=== PATIENT | female | born 1975 | race Caucasian/White ===

== ENCOUNTER → 2017-09-24 10:30 | Outpatient (CLI) | payer OTHER, SELFPAY | PROVIDERS: Family Provider Family Medicine; PCP Family Medicine; Visit Provider Family Medicine | DX: Z46.89 Encounter for fitting and adjustment of other specified devices (principal) ==

== ENCOUNTER → 2017-09-27 11:00 | Outpatient (CLI) | payer OTHER, SELFPAY | PROVIDERS: Family Provider Family Medicine; PCP Family Medicine; Visit Provider Family Medicine | DX: Z46.89 Encounter for fitting and adjustment of other specified devices (principal) ==

== ENCOUNTER → 2017-09-30 12:53 | Outpatient (CLI) | payer OTHER, SELFPAY | PROVIDERS: Family Provider Family Medicine; PCP Family Medicine; Visit Provider Family Medicine | DX: Z46.89 Encounter for fitting and adjustment of other specified devices (principal) ==

== ENCOUNTER → 2017-10-18 22:36 | Outpatient (CLI) | payer OTHER, SELFPAY | PROVIDERS: Family Provider Family Medicine; PCP Family Medicine; Visit Provider Family Medicine | DX: G47.33 Obstructive sleep apnea (adult) (pediatric) (principal) | CPT/HCPCS: 95811 ==

== ENCOUNTER → 2018-04-03 07:34 | Outpatient (CLI) | payer OTHER, SELFPAY ==
--- NOTE | 2018-04-03 07:36 | BI_ITS ---
MAMMOGRAPHY - BILATERAL SCREENING 3-D KYLIE SYNTHESIS REASON FOR EXAM: Female, 43 years old. Bilateral Screening 3-D tomosynthesis PERTINENT HISTORY: Grandmother with breast cancer.. TECHNIQUE: 2-D mammograms and 3-D Kylie synthesis of the breast (s) were performed. CAD was performed. COMPARISON: 02/08/2017 FINDINGS: The breast composition is heterogeneously dense that can obscure small breast masses. Scattered benign calcifications are seen. No dense spiculated masses or suspicious microcalcifications are identified. No architectural distortion is identified. There is no skin thickening or retraction. There has been no significant change since the prior study. BI/SCREENING MAMM (CAD), BILAT IMPRESSION: No mammographic signs of malignancy. Routine yearly mammograms recommended. ASSESSMENT CATEGORY: BIRADS Category 1: Negative. A letter regarding these results will be sent to the patient by the facility within 30 days. FOLLOW UP RECOMMENDATION: Yearly follow up mammogram recommended. (A) Approximately 10% of breast cancers are not detected by mammography. A normal mammogram should not delay biopsy of a clinically suspicious abnormality. Electronically Signed: Dennys Crawford MD at 10:18 EDT , Service support ,
[2018-04-03 09:09] LABS: AST(SGOT) 15 U/L (15-37); Alanine Aminotransfer ALT/SGPT 16 U/L (13-56); Albumin, Serum 3.4 g/dL (3.2-5.0); Alkaline Phosphatase 60 U/L (45-117); Anion Gap 3 (5-15); BUN 14 mg/dL (7-18); BUN/Creat Ratio 18.2 RATIO (10-20); Calcium,Total 8.7 mg/dL (8.5-10.1); Chloride 105 mmol/L (98-107); Cholesterol 190 mg/dL (200); Creatinine, Serum 0.77 mg/dL (0.55-1.02); EST Glomerular Filtration Rate 88 mL/min (>60); Est Glom Filt Rate - Afr Amer 106 mL/min (>60); Globulin 3.4 g/dL (2.2-4.2); Glucose 93 mg/dL (74-106); High Density Lipoprotein 59 mg/dL; Potassium 3.6 mmol/L (3.5-5.1); Protein, Total 6.8 g/dL (6.4-8.2); Sodium Level 139 mmol/L (136-145); Triglycerides 87 mg/dL; Very Low Density Lipoprotein 17 mg/dL (5-40)
== END ==
PROVIDERS: Family Provider Family Medicine; PCP Family Medicine; Visit Provider Family Medicine
DX: Z01.419 Encounter for gynecological examination (general) (routine) without abnormal findings (principal); Z12.31 Encounter for screening mammogram for malignant neoplasm of breast; Z13.220 Encounter for screening for lipoid disorders; Z13.1 Encounter for screening for diabetes mellitus
CPT/HCPCS: 36415; 77063; 77067; 80053; 80061

== ENCOUNTER 2018-07-24 12:15 | Outpatient (RCR) | payer OTHER, SELFPAY ==
--- NOTE | 2017-09-30 15:30 | MASS.EVAL ---
Massage Therapy Evaluation: Initial Evaluation Date: 09/30/2017 SUBJECTIVE: Kayy is a 42 year old female who was referred to the [facility] facility for a massotherapy evaluation by Dr. Tuan Antonio with the diagnosis of back pain. Kayy presents today with the symptoms of tension and pain in her neck, upper back and lower back. She reports having a medical history of scoliosis and surgery in December of 2016 for L5/S1 herniated disk. She reports having minimal limitations during his daily activities currently. OBJECTIVE: Upon observation Kayy has poor posture with her head forward and shoulders forward from the neutral position in sitting and standing. After examination and palpation I found Kayy to have high muscle tension in her scalenes, trapezius, rhomboids, and sub occipitals with minimal restrictions in cervical ROM. Her thoracic and lumbar paraspinals were tender with muscle knots. Her hips and lumbar region were also tight with tender points. The first treatment consisted of a one hour massage to her full body with myofascial release, muscle stripping and trig point compression techniques. ASSESSMENT: I feel that Kayy is a good candidate for massotherapy at this time. She had a favorable response to the first treatment with reduction in her muscle aches, pain and tension. She also had improvement in her cervical and lumbar range of motion with improved flexibility in her neck and back. PLAN: The plan of care was reviewed with the patient. The patient is to be seen on as needed basis for a total of ten sessions with the recommendation of once every four weeks for a one hour treatment.
--- NOTE | 2018-08-30 14:53 | MASS.DISCH ---
Massage Therapy Discharge Summary: Discharge Date: 08/30/2018 Kayy was seen for a massotherapy evaluation on 09/30/2017 with the diagnosis of scoliosis. She was treated with four sessions of massage therapy consisting of deep pressure soft tissue techniques, myofascial release and trigger point compression to her cervical, thoracic, lower back, upper extremities and hips. Kayy responded well to the therapy by reporting decreased tension and pain throughout her neck, shoulders, lower back and hips. Her goals for therapy were met throughout the treatment sessions. At this time this patient is being discharged from our care at [facility] facility.
== END 2018-07-24 19:00 | disposition home or self-care (01) ==
LOC: MASS 12:15
PROVIDERS: Family Provider Family Medicine; PCP Family Medicine; Visit Provider Specialist
DX: M41.9 Scoliosis, unspecified (principal)
CPT/HCPCS: 97124

== ENCOUNTER → 2019-02-12 10:52 | Outpatient (CLI) | payer OTHER, SELFPAY ==
--- NOTE | 2019-02-12 10:55 | CDU_ITS ---
Reason For Study: dizziness Rt. Velocities/BP Lt. Velocities/BP Prox CCA 111.2/27.8 cm/sec. Prox CCA 121.1/37.1 cm/sec. Mid CCA 108.6/30.4 cm/sec. Mid CCA 103.5/28.6 cm/sec. Dist CCA 99.5/26.5 cm/sec. Dist CCA 99.8/33.5 cm/sec. Prox ICA 95.6/18.6 cm/sec. Prox ICA 66.7/28.6 cm/sec. Mid ICA 61.7/23.9 cm/sec. Mid ICA 96.2/32.3 cm/sec. Dist ICA 87.8/44.7 cm/sec. Dist ICA 75.3/33.5 cm/sec. Rt. ICA/CCA = .9. Lt. ICA/CCA = .8. Prox ECA 95.6/21.3 cm/sec. Prox ECA 83.9/22.5 cm/sec. Rt. Vert. 53.9/22.6 cm/sec. Lt. Vert. 50.9/11.3 cm/sec. Right Extracranial There is intimal thickening but no significant atherosclerotic plaque noted in the right common carotid artery. There is intimal thickening but no significant atherosclerotic plaque noted in the right internal carotid artery. There is intimal thickening but no significant atherosclerotic plaque noted in the right external carotid artery. Antegrade flow is noted in the right vertebral artery. Left Extracranial There is intimal thickening but no significant atherosclerotic plaque noted in the left common carotid artery. There is intimal thickening but no significant atherosclerotic plaque noted in the left internal carotid artery. There is intimal thickening but no significant atherosclerotic plaque noted in the left external carotid artery. Antegrade flow is noted in the left vertebral artery. Procedure Carotid Duplex 58060. The exam was diagnostic. Exam performed in department. Interpretation Summary There is < 50% stenosis in bilateral extracranial ICA based on velocity criteria, no significant atherosclerotic disease. Antegrade flow noted in bilateral vertebral arteries. Essentially normal study. Ordering Physician: Rosalba Calvert Performed By: Martin Keys RVT
--- NOTE | 2019-02-12 13:21 | MRI_ITS ---
STUDY: MRA OF THE HEAD WITHOUT CONTRAST REASON FOR EXAM: Female, 44 years old. Dizziness TECHNIQUE: 3-D pror-gc-ysalyk (TOF) imaging was performed with MIPs. The study was performed unenhanced. COMPARISON: None. FINDINGS: Normal bilateral petrous carotid arteries. Normal right cavernous carotid artery with a normal supraclinoid bifurcation. Normal left cavernous carotid artery with a normal supraclinoid bifurcation. Normal right A1 segments of the anterior cerebral artery. Normal left A1 segments of the anterior cerebral artery. Normal intact anterior communicating artery (ACOM). Normal bilateral A2 segments of the anterior cerebral arteries. Normal right M1 and M2 segments of the middle cerebral arteries, with a normal M1 bifurcation. Normal left M1 and M2 segments of the middle cerebral arteries, with a normal M1 bifurcation. Normal right posterior communicating artery (PCOM). Normal left posterior communicating artery (PCOM). Hypoplastic left vertebral artery which terminates at the left posterior inferior cerebellar artery. Oormal basilar artery with a normal basilar bifurcation. The visualized bilateral superior cerebellar (SCA) arteries are normal. Normal bilateral P1, P2 and visualized P3 segments of the posterior cerebral arteries. There is no demonstrated aneurysm of the crow of [place]. There is no major vessel occlusion or hemodynamically significant stenosis. There is no demonstrated abnormality of the visualized brain. MRI/MRA Head ONLY without Contrast IMPRESSION: Normal MRA of the head Electronically Signed: Matthias Avila MD at 14:56 EDT Tel , Service support ,
--- NOTE | 2019-02-12 13:21 | MRI_ITS ---
STUDY: MRI BRAIN WITHOUT CONTRAST REASON FOR EXAM: Female, 44 years old. Dizziness TECHNIQUE: Standardized multiplanar fat and water weighted pulse sequences were obtained. COMPARISON: None. FINDINGS: Normal size of the ventricles and extra-axial spaces for the patient's age. Normal white matter tracts of the supratentorial brain. There is no evidence for recent intracranial ischemia or other cause of cytotoxic edema on diffusion weighted imaging (DWI). Normal T2* images of the brain without demonstrated susceptibility artifact. There is no demonstrated hemosiderin stain. Normal bilateral basal ganglia. Normal thalami. 1.5 cm round mass of fluid intensity in the gyri at the junction of the right parietal lobe in the right occipital lobe which appears to have thin internal septations and is felt to likely represent an arachnoid cyst. No significant mass effect or surrounding edema. Correlation MRI with contrast is recommended. Normal flow voids within the major intracranial circulation suggesting patency by spin echo criteria. Normal sella turcica, pituitary gland, infundibular stalk, optic chiasm and hypothalamus. Normal tectal plate and pineal gland. Normal midbrain, sebastien and medulla. Normal cerebellum. Normal basal cisterns. Normal bilateral temporal bones. Normal bilateral internal auditory canals. No demonstrated orbital abnormality, within the constraints of a routine brain study. Normal visualized paranasal sinuses. Normal calvarium and skull base. Normal visualized soft tissue structures. Normal visualized upper cervical spine. MRI/Brain without Contrast IMPRESSION: 1.5 cm probable arachnoid cyst of the posterior right parietal lobe. Correlation with MRI with contrast is recommended. Electronically Signed: Matthias Avila MD at 14:55 EDT Tel , Service support ,
== END ==
PROVIDERS: Family Provider Family Medicine; PCP Family Medicine; Referring Provider Psychiatry & Neurology Neurology; Visit Provider Psychiatry & Neurology Neurology
DX: R42 Dizziness and giddiness (principal)
CPT/HCPCS: 70544; 70551; 93880

== ENCOUNTER → 2019-03-05 17:35 | Outpatient (CLI) | payer OTHER, SELFPAY ==
--- NOTE | 2019-03-05 17:51 | MRI_ITS ---
STUDY: MRI BRAIN WITH CONTRAST REASON FOR EXAM: Female, 44 years old. Arachnoid cyst TECHNIQUE: Standardized multiplanar fat and water weighted pulse sequences were obtained. 15 IV Dotarem was administered for the contrast portion of the examination. COMPARISON: February 12, 2019 FINDINGS: Normal size of the ventricles and extra-axial spaces for the patient's age. Normal white matter tracts of the supratentorial brain. Normal bilateral basal ganglia. Normal thalami. There is no extra-axial fluid accumulation. Normal flow voids within the major intracranial circulation suggesting patency by spin echo criteria. Normal venous enhancement. There is a small thin walled enhancing nodule in the right parietal lobe measuring approximately 5.3 x 6 mm in association with mild low signal intensity but no appreciable mass effect. Normal sella turcica, pituitary gland, infundibular stalk, optic chiasm and hypothalamus. Normal tectal plate and pineal gland. Normal midbrain, sebastien and medulla. Normal cerebellum. Normal basal cisterns. Normal bilateral temporal bones. Normal bilateral internal auditory canals. No demonstrated orbital abnormality, within the constraints of a routine brain study. Normal visualized paranasal sinuses. Normal calvarium and skull base. Normal visualized soft tissue structures. Normal visualized upper cervical spine. MRI/Brain WITH Contrast IMPRESSION: Small nonspecific thin-walled enhancing nodule in the right parietal lobe without appreciable mass effect of uncertain etiology. Differential diagnosis includes low-grade neoplasm, inflammatory disease, vascular lesion or demyelinating process. Recommend clinical correlation and follow-up studies Electronically Signed: Marty Dao MD at 19:51 EDT , Service support ,
== END ==
PROVIDERS: Family Provider Family Medicine; PCP Family Medicine; Referring Provider Psychiatry & Neurology Neurology; Visit Provider Psychiatry & Neurology Neurology
DX: G93.0 Cerebral cysts (principal); R42 Dizziness and giddiness
CPT/HCPCS: 70552; A9575

== ENCOUNTER → 2019-03-27 | Outpatient (CLI) | payer OTHER, SELFPAY ==
[2019-03-27 11:29] LABS: Erythrocyte Sedimentation Rate 10 mm/hr (0-20)
[2019-03-27 12:01] LABS: CRP 7.49 mg/L (0.0-3.0); Rheumatoid Factor < 10.0 IU/mL (<15); Thyroid Stim Hormone (TSH) 2.25 uIU/mL (0.358-3.74)
[2019-03-31 17:23] LABS: ANTINUCLEAR ANTIBODIES DIRECT Negative (Negative)
[2019-04-01 04:09] LABS: Cytoplasmic Ab (C-ANCA) <1:20 titer (Neg:<1:20); Lyme IgG P18 Ab Absent (.); Lyme IgG P23 Ab Absent (.); Lyme IgG P28 Ab Absent (.); Lyme IgG P30 Ab Absent (.); Lyme IgG P39 Ab Absent (.); Lyme IgG P41 Ab Absent (.); Lyme IgG P45 Ab Absent (.); Lyme IgG P58 Ab Absent (.); Lyme IgG P66 Ab Absent (.); Lyme IgG P93 Ab Absent (.); Lyme IgM P23 Ab Absent (.); Lyme IgM P39 Ab Absent (.); Lyme IgM P41 Ab Absent (.)
[2019-04-01 09:55] LABS: Angiotensin Convert Enzyme 36 U/L (14-82); Lyme IgG WB Interpretation Negative (.); Lyme IgM WB Interpretation Negative (.); Perinuclear Ab (P-ANCA) <1:20 titer (Neg:<1:20)
== END | disposition home or self-care (01) ==
LOC: LAB 10:35
PROVIDERS: Family Provider Family Medicine; PCP Family Medicine; Referring Provider Psychiatry & Neurology Neurology; Visit Provider Psychiatry & Neurology Neurology
DX: R42 Dizziness and giddiness (principal); R90.89 Other abnormal findings on diagnostic imaging of central nervous system
CPT/HCPCS: 36415; 82164; 84443; 85652; 86038; 86140; 86256; 86431; 86617

== ENCOUNTER → 2019-04-07 17:48 | Outpatient (CLI) | payer OTHER, SELFPAY ==
[2019-04-02 14:35] VITALS: BMI 29.4
--- NOTE | 2019-04-07 17:50 | CT_ITS ---
STUDY: CT CHEST WITH CONTRAST REASON FOR EXAM: Female, 44 years old. Brain lesion seen on MRI, cancer screening RADIATION DOSAGE (If Supplied By Facility): CTDIvol = ( 15.36 ) mGy, DLP = ( 1442.19 ) mGycm TECHNIQUE: Transaxial imaging was performed following intravenous administration of 100ML IV Isovue 300. Individualized dose optimization techniques were used for this CT. COMPARISON: None. FINDINGS: The lungs are normal. There is no demonstrated pleural abnormality. Normal heart and pericardium. Normal mediastinum. Normal hilar regions. Normal enhanced pulmonary arteries. Normal aorta arch and descending thoracic aorta. There is mild diffuse endplate spondylosis of the thoracic spine. Abdominal findings are reported separately. CT/Chest WITH Contrast IMPRESSION: Mild diffuse endplate spondylosis of the thoracic spine. There is no evidence of thoracic mass, adenopathy, or pulmonary nodule. Electronically Signed: Jaime Kraft MD at 20:53 EDT , Service support ,
--- NOTE | 2019-04-07 17:50 | CT_ITS ---
STUDY: CT ABDOMEN AND PELVIS WITH CONTRAST REASON FOR EXAM: Female, 44 years old. Brain lesion seen on MRI, cancer screening RADIATION DOSAGE (If Supplied By Facility): CTDIvol = ( ) mGy, DLP = ( 1442.19 ) mGycm TECHNIQUE: Transaxial images were obtained from the dome of the diaphragm to the symphysis pubis with oral contrast. 100ML IV/Oral Isovue 300 was administered. Sagittal and coronal images were reconstructed. Individualized dose optimization techniques were used for this CT. COMPARISON: None. FINDINGS: The visualized lung bases are unremarkable. The visualized portions of the heart are within normal limits. Normal liver. There are several tiny calcified gallstones. Normal spleen. Normal pancreas. Normal bilateral adrenal glands. Normal right kidney. Normal left kidney. Normal visualized stomach. Normal small intestine. Normal colon. The appendix is visualized and appears normal. Normal abdominal aorta. Normal inferior vena cava. Normal retroperitoneum. Normal urinary bladder. The uterus and adnexal structures are unremarkable. Normal abdominal wall. Normal osseous structures. CT/Abdomen/Pelvis WITH Contrast IMPRESSION: Cholelithiasis. There is no evidence of intra-abdominal or intrapelvic mass or adenopathy. Electronically Signed: Jaime Kraft MD at 20:43 EDT , Service support ,
== END ==
PROVIDERS: Family Provider Family Medicine; PCP Family Medicine; Referring Provider Internal Medicine Medical Oncology
DX: R90.89 Other abnormal findings on diagnostic imaging of central nervous system (principal)
CPT/HCPCS: 71260; 74177; Q9967

== ENCOUNTER → 2019-04-09 15:51 | Outpatient (CLI) | payer OTHER, SELFPAY ==
[2019-04-09 09:08] LABS: AST(SGOT) 14 U/L (15-37); Alanine Aminotransfer ALT/SGPT 17 U/L (13-56); Albumin, Serum 3.7 g/dL (3.2-5.0); Alkaline Phosphatase 57 U/L (45-117); Anion Gap 6 (5-15); BUN 13 mg/dL (7-18); BUN/Creat Ratio 13.1 RATIO (10-20); Calcium,Total 9.2 mg/dL (8.5-10.1); Chloride 105 mmol/L (98-107); Cholesterol 196 mg/dL (200); Creatinine, Serum 0.99 mg/dL (0.55-1.02); EST Glomerular Filtration Rate 65 mL/min (>60); Est Glom Filt Rate - Afr Amer 79 mL/min (>60); Globulin 3.7 g/dL (2.2-4.2); Glucose 91 mg/dL (74-106); High Density Lipoprotein 60 mg/dL; Potassium 3.9 mmol/L (3.5-5.1); Protein, Total 7.4 g/dL (6.4-8.2); Sodium Level 140 mmol/L (136-145); Triglycerides 63 mg/dL; Very Low Density Lipoprotein 13 mg/dL (5-40)
[2019-04-09 09:51] VITALS: BMI 29.2
--- NOTE | 2019-04-09 15:54 | BI_ITS ---
MAMMOGRAPHY - BILATERAL SCREENING REASON FOR EXAM: Female, 44 years old. Routine annual screening examination. PERTINENT HISTORY: Grandmother with breast cancer. TECHNIQUE: Digital bilateral breast kylie (3D mammographic acquisition) in the CC and MLO projections. 2-D mediolateral oblique (MLO) and craniocaudad (CC) views of both breasts were obtained. CAD: Full Field Digital Mammography with Computer Added Detection was performed. COMPARISON: Comparison is made with prior study dated April 03, 2018 and February 08, 2017. FINDINGS: Breast Composition: The breasts are heterogeneously dense, which may obscure small masses. There are no dominant masses or suspicious calcifications. Stable small benign-appearing bilateral axillary lymph nodes. No other significant abnormalities are identified. There has been no significant change since the prior study. BI/SCREEN MAMM (CAD) W/KYLIE BILAT IMPRESSION: Stable bilateral screening mammogram. Yearly follow-up mammogram recommended. (A) ASSESSMENT CATEGORY: BIRADS Category 2: Benign. A letter regarding these results will be sent to the patient by the facility within 30 days. Approximately 10% of breast cancers are not detected by mammography. A normal mammogram should not delay biopsy of a clinically suspicious abnormality. [id number] Electronically Signed: Cale Milner, at 9:03 EDT , Service support ,
== END ==
PROVIDERS: Family Provider Family Medicine; PCP Family Medicine; Referring Provider Family Medicine; Visit Provider Family Medicine
DX: Z12.31 Encounter for screening mammogram for malignant neoplasm of breast (principal); Z80.3 Family history of malignant neoplasm of breast; Z13.1 Encounter for screening for diabetes mellitus; Z13.220 Encounter for screening for lipoid disorders
CPT/HCPCS: 36415; 77063; 77067; 80053; 80061

== ENCOUNTER → 2019-04-16 10:12 | Outpatient (CLI) | payer OTHER, SELFPAY ==
[2019-04-02 14:35] VITALS: BMI 29.4
[2019-04-09 09:51] VITALS: BMI 29.2
--- NOTE | 2019-04-16 10:22 | MRI_ITS ---
STUDY: MRI BRAIN WITH AND WITHOUT CONTRAST REASON FOR EXAM: Female, 44 years old. Follow up for brain mass. Dizziness. TECHNIQUE: Standardized multiplanar fat and water weighted pulse sequences were obtained. 15 IV Dotarem was administered for the contrast portion of the examination. COMPARISON: Brain MRI 02/12/2019 and 03/05/2019. FINDINGS: There is a bubbly cystic lesion measuring 1.7 x 1.1 x 1.1 cm in the right posterior parietal lobe subcortical white matter. On the contrast-enhanced sequences this demonstrates a 7 x 5 mm peripherally enhancing mural nodule. There is no surrounding vasogenic edema or mass effect. Normal size of the ventricles and extra-axial spaces for the patient's age. Normal white matter tracts of the supratentorial brain. There is no evidence for recent intracranial ischemia or other cause of cytotoxic edema on diffusion weighted imaging (DWI). Normal T2* images of the brain without demonstrated susceptibility artifact. There is no demonstrated hemosiderin stain. Normal bilateral basal ganglia. Normal thalami. There is no extra-axial fluid accumulation. Normal flow voids within the major intracranial circulation suggesting patency by spin echo criteria. Normal venous enhancement. Normal sella turcica, pituitary gland, infundibular stalk, optic chiasm and hypothalamus. Normal tectal plate and pineal gland. Normal midbrain, sebastien and medulla. Normal cerebellum. Normal basal cisterns. Normal bilateral temporal bones. Normal bilateral internal auditory canals. No demonstrated orbital abnormality, within the constraints of a routine brain study. Normal visualized paranasal sinuses. Normal calvarium and skull base. Normal visualized soft tissue structures. Normal visualized upper cervical spine. MRI/Brain W/WO Contrast IMPRESSION: 1. Right posterior parietal lobe subcortical white matter cystic lesion measuring 1.7 x 1.1 x 1.1 cm with a 7 x 5 mm peripherally enhancing mural nodule. Differential diagnosis includes but is not limited to hemangioblastoma, cystic metastasis or pleomorphic xanthoastrocytoma. There is no surrounding vasogenic edema or mass effect. 2. Consider imaging the cervical, thoracic and lumbar spine with IV contrast as hemangioblastoma may have multiple lesions. Electronically Signed: Ti Ibarra, at 14:40 EDT Tel , Service support ,
== END ==
PROVIDERS: Family Provider Family Medicine; PCP Family Medicine
DX: D49.6 Neoplasm of unspecified behavior of brain (principal)
CPT/HCPCS: 70553; A9575

== ENCOUNTER 2019-04-23 08:27 | Outpatient (CLI) | payer OTHER, SELFPAY ==
[2019-04-09 09:51] VITALS: BMI 29.2
--- NOTE | 2019-04-23 | CYSPIN_PTH ---
PATIENT: SATISH SUAZO LOC: RAD U#:[id number] AGE/SX: 44/F ROOM: RE04/23/[address]: Dr. Una Calvert MD : [id number] BED: DIS: 04/23/2019 SPEC #: [id number] RECD: 04/23/19 09:52 STATUS: SHANTE REVerna #: [id number] JOE: 04/23/19 00:[address]: Una Calvert DEPT: CYTOLOGY RECD BY: Jorge Luis Leblanc ENTERED: 04/23/19 11:14 SP TYPE: CYSPIN FL OTHR DR: Dr. Tuan Antonio MD Tissues: Cerebrospinal Fluid Procedures: Pap Stain (control) Special Stain Group II Cytospin Fluid HEADER OPERATION: Lumbar puncture PRE-OP DIAGNOSIS: Possible multiple sclerosis TISSUE SUBMITTED: Cerebrospinal fluid for cytology DIAGNOSIS CYTOLOGY Cerebrospinal fluid for cytology (cytospin): Virtually acellular specimen. AM:connor 04/24/19 CYTOLOGY STUDY Slides are reviewed. CYTOLOGY GROSS Received is 4 ml of clear fluid labeled with the patient's name and and designated per the requisition as CSF. Submitted for cytology preparation including cell block. 04/23/19 TC:5 CPT: 47549
[2019-04-23 08:32] LABS: Oligoclonal Banding Comment REF LAB
[2019-04-23 08:54] VITALS: BP 115/77; PULSE 84; RESP 18; TEMP 36.7; O2SAT 97; BMI 29.1
--- NOTE | 2019-04-23 09:05 | RAD_ITS ---
PROCEDURE: Fluoroscopic guided Lumbar Puncture. DATE: April 23, 2019 CLINICAL INDICATION: Possible multiple sclerosis. PHYSICIAN: Cale Milner M.D. MEDICATIONS: 1% lidocaine administered subcutaneously for local anesthesia. ACCESS SITE: Lower posterior back. NEEDLE: 22-gauge spinal needle. SPECIMEN: Approximately 12 mL clear]CSF fluid. FLUOROSCOPY TIME (if supplied): (0:37) minutes/seconds COMPLICATIONS: None immediate. The risks, benefits, and alternatives to the procedure were explained to the patient. The specific risks of bleeding, infection, and neurovascular injury were detailed and accepted. Witnessed informed consent was obtained. The patient was placed on the fluoroscopic table in the prone position. The level for needle entry was determined and marked. The overlying skin was cleaned and prepped in the usual sterile fashion. 2% lidocaine was administered subcutaneously for local anesthesia. Under fluoroscopic guidance a 22-gauge spinal needle was advanced. The thecal sac was entered at the L3- L4 vertebral level. The inner stylet was removed. There was spontaneous flow of clear CSF fluid. The patient was placed in a reversed Trendelenburg position. Approximately 12 mL of cerebrospinal fluid was collected using gravity. The specimen was collected and submitted to the laboratory for further evaluation. The needle was withdrawn,. Hemostasis was achieved and a sterile dressing placed. The patient tolerated the procedure well without any immediate complications. The patient was placed supine with head elevated and returned to the floor in stable condition. RAD/Fluoro Guided Lumbar Puncture IMPRESSION: Successful fluoroscopic-guided lumbar puncture. Electronically Signed: Cale Milner, at 10:49 EDT , Service support ,
--- NOTE | 2019-04-23 09:50 | NURSING ---
notifed Keisha in lab regarding Lumbar puncture specimens obtained in radiology and sent to lab.
[2019-04-23 09:58] LABS: Cytology, Body Fluid / CSF SEE PATHOLOGY REPORT
[2019-04-23 10:31] LABS: Glucose Spinal Fluid 53 mg/dL (40-75)
[2019-04-23 10:49] VITALS: BP 112/74; PULSE 67; RESP 18; TEMP 36.7; O2SAT 99
[2019-04-23 11:01] LABS: Appearance CSF (character) CLEAR (Clear); Body Fluid QC Type(s) BF1Q,BF2Q; CSF Color COLORLESS (Colorless); RBC Count, Spinal Fluid 0 /mm-3 (None seen); White Count, CSF 0 /mm-3 (0 - 5)
[2019-04-23 11:02] LABS: Tested Tube # 4
[2019-04-23 14:40] LABS: Pathologist Review Reviewed
[2019-04-29 05:06] LABS: Cryptococcus Antigen CSF Negative (Negative); HSV 1 By PCR Negative (Negative)
[2019-04-29 11:29] LABS: CMV by PCR Negative (Negative); HSV 2 By PCR Negative (Negative); Myelin Basic Protein, MBP 3.3 ng/mL (0.0-1.2)
== END 2019-04-23 10:49 | disposition home or self-care (01) ==
LOC: RAD 08:28
PROVIDERS: Family Provider Family Medicine; PCP Family Medicine; Referring Provider Psychiatry & Neurology Neurology; Visit Provider Psychiatry & Neurology Neurology
DX: R42 Dizziness and giddiness (principal)
CPT/HCPCS: 36415; 62270; 77003; 82040; 82042; 82784; 82945; 83873; 83916; 84157; 87496; 87529; 87899; 88108; 88313; 89050; 89051

== ENCOUNTER 2019-05-05 11:09 | Outpatient (RCR) | payer OTHER, SELFPAY ==
--- NOTE | 2019-08-19 11:28 | DS.PCM_ITS ---
Massage Therapy Discharge Summary: Initial Evaluation Date: 05/05/2019 Diagnosis: Scoliosis No. of Visits: Date of last visit: 05/05/2019 Goals: Insufficient visits to meet goals This patient is being discharged from our care at the [facility]. Thank you, Odette Grady LMT
== END 2019-05-05 19:00 | disposition home or self-care (01) ==
LOC: MASS 11:09
PROVIDERS: Family Provider Family Medicine; PCP Family Medicine; Referring Provider Family Medicine; Visit Provider Family Medicine
DX: M41.9 Scoliosis, unspecified (principal)
CPT/HCPCS: 97124

== ENCOUNTER → 2019-05-07 11:47 | Outpatient (CLI) | payer OTHER, SELFPAY ==
[2019-04-23 08:54] VITALS: BMI 29.1
== END ==
PROVIDERS: Family Provider Family Medicine; PCP Family Medicine; Referring Provider Psychiatry & Neurology Neurology; Visit Provider Psychiatry & Neurology Neurology
DX: G93.9 Disorder of brain, unspecified (principal)
CPT/HCPCS: 36415

== ENCOUNTER → 2019-05-27 10:17 | Outpatient (CLI) | payer OTHER, SELFPAY ==
[2019-05-15 12:29] VITALS: BMI 29.1
--- NOTE | 2019-05-27 10:27 | MRI_ITS ---
STUDY: MRI LUMBAR SPINE WITH AND WITHOUT CONTRAST REASON FOR EXAM: Female, 44 years old. Partially enhancing cystic lesion in the right parietal lobe. Assess for spinal lesions. TECHNIQUE: Standardized fat and water weighted pulse sequences were obtained in the sagittal and axial planes. 15 IV Dotarem was administered for the contrast portion of the examination. COMPARISON: MRI lumbar spine 09/29/16 FINDINGS: No concerning masses or abnormal enhancement in the lumbar spine. Alignment anatomic. No fracture or acute or concerning osseous lesions. Incidental subcentimeter hemangioma L2 vertebral body. Conus terminates at the level of the L1 superior endplate with normal contour and signal. Normal arborization of the cauda equina. Thecal sac terminates at the lower S2 level. At L5-S1, there is evidence of remote left hemilaminotomy. Diffuse disc bulge with small left paracentral protrusion mildly narrows the left subarticular zone, abutting but not compressing the traversing left S1 nerve root. Only mild bilateral foraminal narrowing. This is similar to prior. The more cephalad lumbar spine shows very little degenerative changes with no significant foraminal or spinal canal narrowing and no nerve root impingement. Paraspinal soft tissues are unremarkable. MRI/Spine Lumbar W/WO Contrast IMPRESSION: No concerning masses or abnormal enhancement in the lumbar spine. Left paracentral disc protrusion abuts the traversing left S1 nerve root in the left L5-S1 subarticular zone, similar to prior. Electronically Signed: Jaime Case, at 15:24 EDT Tel , Service support ,
--- NOTE | 2019-05-27 10:27 | MRI_ITS ---
STUDY: MRI CERVICAL SPINE WITH AND WITHOUT CONTRAST REASON FOR EXAM: Female, 44 years old. Partially enhancing cystic mass in the right parietal lobe. Assess for spinal lesions. TECHNIQUE: Standardized fat and water weighted pulse sequences were obtained in the sagittal and axial following administration of 15 IV Dotarem. COMPARISON: None FINDINGS: No masses or abnormal enhancement or concerning lesions in the cervical spine. Normal contour and signal of the cervical spinal cord. Alignment anatomic. No fracture or suspicious osseous lesions. At C5-6, left uncovertebral joint osteophytes cause moderate left foraminal narrowing. Less prominent degenerative changes at other levels with only mild narrowing of the spinal canal and/or foramina. Paraspinal soft tissues with no acute finding. Shotty mildly prominent cervical lymph nodes. MRI/Spine Cervical W/WO Contrast IMPRESSION: No masses or abnormal enhancement or concerning lesions in the cervical spine. Electronically Signed: Jaime Case, at 15:38 EDT Tel , Service support ,
--- NOTE | 2019-05-27 10:27 | MRI_ITS ---
STUDY: MRI THORACIC SPINE WITH AND WITHOUT CONTRAST REASON FOR EXAM: Female, 44 years old. Cystic partially enhancing mass in the parietal lobe of the brain on the right. Assess for spinal lesions. TECHNIQUE: 15 IV Dotarem was administered for the contrast portion of the examination. COMPARISON: CT chest 03/08/2019. FINDINGS: No masses or abnormal enhancement or concerning findings in the thoracic spine. Alignment anatomic. No fracture or suspicious osseous lesion. Multilevel small disc protrusions in the upper and mid thoracic spine with only mild narrowing of the spinal canal and foramina. Normal contour and signal of the thoracic spinal cord. No acute or concerning finding in the paraspinal soft tissues. Incidental small cyst right lobe of liver. MRI/Spine Thoracic W/WO Contrast IMPRESSION: No masses or abnormal enhancement or concerning findings in the thoracic spine. Electronically Signed: Jaime Case, at 15:58 EDT Tel , Service support ,
== END ==
PROVIDERS: Family Provider Family Medicine; PCP Family Medicine; Referring Provider Psychiatry & Neurology Neurology; Visit Provider Psychiatry & Neurology Neurology
DX: D49.6 Neoplasm of unspecified behavior of brain (principal); D18.02 Hemangioma of intracranial structures; M51.27 Other intervertebral disc displacement, lumbosacral region
CPT/HCPCS: 72156; 72157; 72158

== ENCOUNTER → 2019-06-08 09:48 | Outpatient (CLI) | payer OTHER, SELFPAY ==
[2019-05-15 12:29] VITALS: BMI 29.1
--- NOTE | 2019-06-08 10:30 | PET_ITS ---
EXAMINATION: FDG PET-CT Brain INDICATIONS: A 44-year-old female with reported history of apparent brain neoplasm presenting for initial staging examination. COMPARISON EXAMINATION: MRI of the brain report dated 04/16/19 TECHNIQUE: Following the intravenous administration of 11.71 mCi of F-18 deoxyglucose via the right antecubital fossa, multiplanar image acquisitions of the brain obtained at 60 minutes post radiopharmaceutical administration reveal: SERUM GLUCOSE LEVEL: 89 mg/dl. HEIGHT: 65 inches. WEIGHT: 175 lbs. FINDINGS: 1. Asymmetric increased glucose concentration is subtly defined in the posterior aspect of the right parietal lobe generating a lesion to contralateral hemisphere ratio of 1.1:1. 2. There is otherwise symmetric and preserved glucose metabolism noted in the remaining cerebral cortical and subcortical structures. PET/PET/CT Tumor Base -Thigh Init IMPRESSION: 1. Subtle asymmetric increased glucose concentration identified in the posterior aspect of the right parietal lobe may correlate with the anatomic abnormalities defined on MRI of the brain report dated 04/16/19. 2. No other quantitatively significant hypermetabolic abnormalities are noted. Electronic Signature Matthias Santoyo D.O. Electronically Signed: Matthias Santoyo DO at 22:52 EDT Tel , Service support ,
== END ==
PROVIDERS: Family Provider Family Medicine; PCP Family Medicine; Referring Provider Psychiatry & Neurology Neurology; Visit Provider Psychiatry & Neurology Neurology
DX: G93.9 Disorder of brain, unspecified (principal)
CPT/HCPCS: 78815; A9552

== ENCOUNTER → 2019-07-25 08:35 | Outpatient (CLI) | payer OTHER, SELFPAY ==
[2019-06-11 14:00] VITALS: BMI 29.1
--- NOTE | 2019-07-25 08:41 | MRI_ITS ---
STUDY: MRI BRAIN WITH AND WITHOUT CONTRAST REASON FOR EXAM: Female, 44 years old. RT PARIETAL LOBE LESION -- recheck, dizziness improved, pollock's. TECHNIQUE: Standardized multiplanar fat and water weighted pulse sequences were obtained. IV Dotarem 15 was administered for the contrast portion of the examination. COMPARISON: April 16, 2019 and February 12, 2019 FINDINGS: Again noted is the approximately 1.8 x 1.1 cm right parietal lesion which demonstrate 8mm nodular enhancement and surrounding cystic component. This is stable in comparison with the prior examinations. There is no surrounding vasogenic edema. Normal size of the ventricles and extra-axial spaces for the patient's age. Normal white matter tracts of the supratentorial brain. Normal bilateral basal ganglia. Normal thalami. There is no extra-axial fluid accumulation. Normal flow voids within the major intracranial circulation suggesting patency by spin echo criteria. Normal sella turcica, pituitary gland, infundibular stalk, optic chiasm and hypothalamus. Normal tectal plate and pineal gland. Normal midbrain, sebastien and medulla. Normal cerebellum. Normal basal cisterns. MRI/Brain W/WO Contrast IMPRESSION: Stable right parietal cystic lesion. Differential considerations are low-grade cystic neoplasm, metastatic disease, infectious (neurocysticercosis) and hemangioblastoma. Electronically Signed: Eileen Colunga MD at 16:27 EST Tel , Service support ,
== END ==
PROVIDERS: Family Provider Family Medicine; PCP Family Medicine; Referring Provider Psychiatry & Neurology Neurology; Visit Provider Psychiatry & Neurology Neurology
DX: G93.9 Disorder of brain, unspecified (principal)
CPT/HCPCS: 70553; A9575

== ENCOUNTER → 2019-12-17 11:00 | Outpatient (CLI) | payer OTHER, SELFPAY ==
[2019-08-11 14:17] VITALS: BMI 28.4
--- NOTE | 2019-12-17 11:09 | MRI_ITS ---
STUDY: MRI BRAIN WITH AND WITHOUT CONTRAST REASON FOR EXAM: Female, 44 years old. right parietal lobe lesion, dizziness and headaches x 4 wks TECHNIQUE: Standardized multiplanar fat and water weighted pulse sequences were obtained. IV Dotarem 15ml was administered for the contrast portion of the examination. COMPARISON: July 25, 2019 and February 12, 2019 FINDINGS: Again noted is the approximately 1.8 x 1.1 cm right parietal lesion which demonstrate 8mm nodular enhancement and surrounding cystic component. This is stable in comparison with the prior examinations. There is no surrounding vasogenic edema. Normal white matter tracts of the supratentorial brain. Normal bilateral basal ganglia. Normal thalami. There is no extra-axial fluid accumulation. Normal flow voids within the major intracranial circulation suggesting patency by spin echo criteria. Normal venous enhancement. There is no enhancing intra-axial or extra-axial abnormality. Normal sella turcica, pituitary gland, infundibular stalk, optic chiasm and hypothalamus. Normal tectal plate and pineal gland. Normal midbrain, sebastien and medulla. Normal cerebellum. Normal basal cisterns. MRI/Brain W/WO Contrast IMPRESSION: Stable right parietal cystic lesion. Differential considerations include low-grade cystic neoplasm, and hemangioblastoma. Electronically Signed: Eileen Colunga MD at 13:44 EDT Tel , Service support ,
== END ==
PROVIDERS: PCP Family Medicine
DX: G93.9 Disorder of brain, unspecified (principal)
CPT/HCPCS: 70553; A9575

== ENCOUNTER 2020-11-25 22:14 | Outpatient (RCR) | payer OTHER, SELFPAY ==
[2020-02-22 15:35] VITALS: BMI 28.3
[2020-11-25] MEDS: COVID-19 VACC, MRNA(PFIZER)/PF 30 MCG/0.3 ML SYRINGE IM (15:35)
[2020-12-16] MEDS: COVID-19 VACC, MRNA(PFIZER)/PF 30 MCG/0.3 ML SYRINGE IM (15:07)
== END 2020-11-25 23:59 ==
LOC: IMMUN 22:14
PROVIDERS: PCP Family Medicine; Visit Provider Family Medicine
DX: Z23 Encounter for immunization (principal)
CPT/HCPCS: 0001A; 0002A; 91300

== ENCOUNTER → 2021-01-17 10:34 | Outpatient (CLI) | payer OTHER, SELFPAY ==
[2020-02-22 15:35] VITALS: BMI 28.3
--- NOTE | 2021-01-17 10:36 | BI_ITS ---
MAMMOGRAPHY - BILATERAL SCREENING REASON FOR EXAM: Female, 46 years old. Routine annual screening examination. PERTINENT HISTORY: Grandmother with breast cancer. TECHNIQUE: Digital bilateral breast kylie (3D mammographic acquisition) in the CC and MLO projections. 2-D mediolateral oblique (MLO) and craniocaudad (CC) views of both breasts were obtained. CAD: Full Field Digital Mammography with Computer Added Detection was performed. COMPARISON: Comparison is made with prior study dated 04/09/2019 and 04/03/2018. FINDINGS: Breast Composition: The breasts are heterogeneously dense, which may obscure small masses. There are no dominant masses or suspicious calcifications. Stable small benign-appearing bilateral axillary lymph nodes. No other significant abnormalities are identified. There has been no significant change since the prior study. BI/SCRN MAMM (CAD)W/KYLIE BILAT IMPRESSION: Stable bilateral screening mammogram. Yearly follow-up mammogram recommended. (A) ASSESSMENT CATEGORY: BIRADS Category 2: Benign. A letter regarding these results will be sent to the patient by the facility within 30 days. Approximately 10% of breast cancers are not detected by mammography. A normal mammogram should not delay biopsy of a clinically suspicious abnormality. [id number] Electronically Signed: Cale Milner MD at 11:36 EDT , Service support ,
== END ==
PROVIDERS: PCP Family Medicine; Referring Provider Family Medicine; Visit Provider Family Medicine
DX: Z12.31 Encounter for screening mammogram for malignant neoplasm of breast (principal)
CPT/HCPCS: 77063; 77067

== ENCOUNTER 2021-07-19 13:15 | Outpatient (RCR) | payer OTHER, SELFPAY ==
[2020-02-22 15:35] VITALS: BMI 28.3
--- NOTE | 2021-04-19 11:36 | MASS.EVAL_ITS ---
Massage Therapy Evaluation: Initial Evaluation Date: 04/18/2021 SUBJECTIVE: Kayy is a 46 year old female who was referred to the [facility] for a massotherapy evaluation by Dr. Antonio with the diagnosis of scoliosis and muscle spasms. She presents today with the symptoms of dealing with having muscles spasms in her mid back. she reports that the spasms occur after having her arms out forward for a long period of time, such as yard work. She is currently taking muscle relaxers at this time and that has helped. OBJECTIVE: Upon observation Kayy has poor posture with her head and shoulders forward from the neutral position in sitting and standing. After examination and palpation, I found Kayy to have high muscle tension with tenderness and myofascial restrictions in her sub occipitals, levator scapulae, trapezius, rhomboids, scalenes, and thoracic paraspinals. Her QL?s, lumbar paraspinals, piriformis, glute medius and minimus all were very tight with fascial restrictions, tender points and trigger points. The first treatment consisted of a one hour massage to her full body with myofascial release, muscle stripping, trigger point c ompression techniques, and cervical manual traction. ASSESSMENT: I feel that Kayy is a good candidate for massotherapy at this time. She had a favorable response to the first treatment with reduction in her muscle aches, pain, and tension. She also had improvement in her cervical flexibility. PLAN: The plan of care was reviewed with the patient. The patient is to be seen on an as needed basis for a total of ten sessions with the recommendation of once every month for a one hour treatment.
--- NOTE | 2021-08-22 13:22 | MASS.DISCH ---
Massage Therapy Discharge Summary: Discharge 08/22/21 Kayy was seen for a massotherapy evaluation on 04/18/21 with the diagnosis of muscle spasms. She was treated with three session of massage therapy. The patient was unable to schedule more visits for the year of 2020, but stated that massages helped decrease her pain. At this time I am discharging the patient from our care at [facility] facility.
== END 2021-07-19 19:00 | disposition home or self-care (01) ==
LOC: MASS 13:15
PROVIDERS: PCP Family Medicine; Referring Provider Family Medicine; Visit Provider Family Medicine
DX: M41.9 Scoliosis, unspecified (principal); M62.838 Other muscle spasm
CPT/HCPCS: 97124

== ENCOUNTER → 2022-01-17 | Outpatient (CLI) | payer OTHER, SELFPAY ==
[2022-01-22 16:38] LABS: HPV APTIMA, High Risk Negative (Negative)
== END | disposition home or self-care (01) ==
PROVIDERS: PCP Family Medicine; Referring Provider Nurse Practitioner Women's Health; Visit Provider Nurse Practitioner Women's Health
DX: Z12.4 Encounter for screening for malignant neoplasm of cervix (principal)
CPT/HCPCS: 87624; 88175; G0145

== ENCOUNTER → 2022-01-30 | Outpatient (CLI) | payer OTHER, SELFPAY ==
--- NOTE | 2022-01-30 13:35 | BI_ITS ---
MAMMOGRAPHY - BILATERAL SCREENING REASON FOR EXAM: Female, 47 years old. Routine annual screening examination. PERTINENT HISTORY: Grandmother with breast cancer. TECHNIQUE: Digital bilateral breast kylie (3D mammographic acquisition) in the CC and MLO projections. 2-D mediolateral oblique (MLO) and craniocaudad (CC) views of both breasts were obtained. CAD: Full Field Digital Mammography with Computer Added Detection was performed. COMPARISON: Bilateral screening mammogram from 01/17/2021, 04/09/2019, 04/03/2018, and 02/08/2017. FINDINGS: Breast Composition: The breasts are heterogeneously dense, which may obscure small masses. There are no dominant masses or suspicious calcifications. No other significant abnormalities are identified. There has been no significant change since the prior study. BI/SCRN MAMM (CAD)W/KYLIE BILAT IMPRESSION: Stable bilateral screening mammogram. Yearly follow-up mammogram recommended. (A) ASSESSMENT CATEGORY: BIRADS Category 1: Negative. A letter regarding these results will be sent to the patient by the facility within 30 days. Approximately 10% of breast cancers are not detected by mammography. A normal mammogram should not delay biopsy of a clinically suspicious abnormality. [id number] Electronically Signed: Jesus Massey, at 15:43 EDT ,
== END | disposition home or self-care (01) ==
PROVIDERS: PCP Family Medicine; Visit Provider Nurse Practitioner Women's Health
DX: Z12.31 Encounter for screening mammogram for malignant neoplasm of breast (principal); Z80.3 Family history of malignant neoplasm of breast
CPT/HCPCS: 77063; 77067

== ENCOUNTER → 2022-02-06 | Outpatient (CLI) | payer OTHER, SELFPAY ==
--- NOTE | 2022-02-06 09:04 | US_ITS ---
STUDY: ABDOMINAL ULTRASOUND - RIGHT UPPER QUADRANT REASON FOR VISIT: Female, 47 years old NAUSEA/ vomiting x 1 month -- epigastric pain TECHNIQUE: Ultrasound evaluation of the right upper quadrant was performed with real-time and static gore-scale imaging. TECHNICAL QUALITY: Adequate. COMPARISON: None. FINDINGS: Liver: The liver measures 14.2 cm. There is increased echogenicity consistent with fatty infiltration. The bile ducts are within normal limits. There is hepatic color flow. The direction of portal flow is hepatopetal. There is no demonstrated mass lesion. Gallbladder: Normal distended gallbladder. The gallbladder wall measures 2.3 mm. There is a negative sonographic Brothers''s sign. There is no pericholecystic fluid. There are multiple echogenic structures within the gallbladder, consistent with multiple gallstones. Common Bile Duct (C.B.D.): The common bile duct measures 2.6 mm. Pancreas: Normal size of the head, body and tail of the pancreas. There is normal echogenicity of the pancreas. There is no demonstrated pancreatic mass or cyst. Right Kidney: Normal size of the right kidney. The right kidney measures 9.6 cm x 4.8 cm x 5 cm. Normal renal cortex. The right cortex measures 1.8 cm. There is no demonstrated renal mass or cyst. There is no right hydronephrosis. US/Abdomen Limited IMPRESSION: Multiple gallstones. Fatty infiltration of the liver. Electronically Signed: Cale Milner MD at 13:05 EDT ,
[2022-02-06 09:40] LABS: Absolute Lymphocyte Count 3.04 X10^3/uL (0.83-4.51); Basophil# 0.01 X10^3/uL; Basophil% 0.1 % (0-1); Hematocrit 41.6 % (37-47); Hemoglobin 13.7 g/dL (12.0-15.0); Lymphocyte # 3.04 X10^3/ul (0.83-4.51); Lymphocyte % 35.1 % (19-41); Mean Corp Hgb Conc 32.9 g/dL (32-36); Mean Corpuscular Hgb 29.7 pg (27.0-32.0); Mean Platelet Vol. 8.9 fl (6.2-12.0); Monocyte# 0.59 X10^3/uL; Monocyte% 6.8 % (0-10); NRBC Flagged by Analyzer 0 % (0-5); Neutrophil # 4.99 X10^3/uL (2.7-7.7); Neutrophil % 57.7 % (47-70); Platelet Count 464 K/mm3 (150-450); RBC Distribution Width CV 12.5 % (11.6-14.6); RBC Distribution Width SD 41.1 fl (35.1-43.9); Red Blood Count 4.62 M/mm3 (4.2-5.4); White Blood Count 8.7 K/mm3 (4.4-11.0)
[2022-02-06 10:16] LABS: AST(SGOT) 14 U/L (15-37); Alanine Aminotransfer ALT/SGPT 19 U/L (13-56); Albumin, Serum 3.7 g/dL (3.2-5.0); Alkaline Phosphatase 56 U/L (45-117); Anion Gap 4 (5-15); BUN 11 mg/dL (7-18); BUN/Creat Ratio 10.9 RATIO (10-20); Calcium,Total 9.2 mg/dL (8.5-10.1); Chloride 108 mmol/L (98-107); Cholesterol 195 mg/dL (200); Creatinine, Serum 1.01 mg/dL (0.55-1.02); EST Glomerular Filtration Rate 63 mL/min (>60); Est Glom Filt Rate - Afr Amer 76 mL/min (>60); Free T3 2.6 pg/mL (2.18-3.98); Globulin 3.7 g/dL (2.2-4.2); Glucose 94 mg/dL (74-106); High Density Lipoprotein 57 mg/dL; Potassium 3.8 mmol/L (3.5-5.1); Protein, Total 7.4 g/dL (6.4-8.2); Sodium Level 140 mmol/L (136-145); T4 Free Direct 0.78 ng/dL (0.76-1.46); Thyroid Stim Hormone (TSH) 1.88 uIU/mL (0.358-3.74); Triglycerides 67 mg/dL; Very Low Density Lipoprotein 13 mg/dL (5-40)
== END | disposition home or self-care (01) ==
PROVIDERS: PCP Family Medicine; Referring Provider Family Medicine; Visit Provider Family Medicine
DX: K80.20 Calculus of gallbladder without cholecystitis without obstruction (principal); K76.0 Fatty (change of) liver, not elsewhere classified; E78.2 Mixed hyperlipidemia; R53.82 Chronic fatigue, unspecified; Z13.1 Encounter for screening for diabetes mellitus
CPT/HCPCS: 36415; 76705; 80053; 80061; 84439; 84443; 84481; 85025

== ENCOUNTER → 2022-04-12 | Outpatient (CLI) | payer OTHER, SELFPAY ==
--- NOTE | 2022-04-12 12:34 | RAD_ITS ---
STUDY: X-RAY - THORACIC SPINE REASON FOR EXAM: Female, 47 years old. Back pain. TECHNIQUE: 3 view(s) of the thoracic spine and upper lumbar spine were obtained. COMPARISON: None. FINDINGS: Normal kyphosis of the thoracic spine. There is no substantial scoliosis. Normal thoracic vertebrae and endplates. Normal disc space heights. There is no evidence of acute fracture or loss of vertebral axial height. The soft tissue structures are unremarkable. RAD/Thoracic Spine 3 Views IMPRESSION: Normal x-ray examination of the thoracic spine. Electronically Signed: Gilberto Maciel DO at 21:59 EDT ,
== END | disposition home or self-care (01) ==
LOC: MTRAD 12:34
PROVIDERS: PCP Family Medicine; Referring Provider Chiropractor; Visit Provider Chiropractor
DX: M51.35 Other intervertebral disc degeneration, thoracolumbar region (principal); M99.02 Segmental and somatic dysfunction of thoracic region
CPT/HCPCS: 72072

== ENCOUNTER → 2023-01-01 | Outpatient (CLI) | payer OTHER, SELFPAY | END | disposition home or self-care (01) | PROVIDERS: PCP Family Medicine; Referring Provider Specialist; Visit Provider Family Medicine | DX: G47.33 Obstructive sleep apnea (adult) (pediatric) (principal) | CPT/HCPCS: 95810 ==

== ENCOUNTER → 2023-01-03 | Outpatient (CLI) | payer OTHER, SELFPAY | END | disposition home or self-care (01) | LOC: SL 20:16 | PROVIDERS: PCP Family Medicine; Referring Provider Family Medicine; Visit Provider Family Medicine | DX: G47.33 Obstructive sleep apnea (adult) (pediatric) (principal) | CPT/HCPCS: 95810 ==

== ENCOUNTER 2023-03-22 10:30 | Outpatient (RCR) | payer OTHER, SELFPAY ==
--- NOTE | 2023-03-05 13:00 | HP.PTEVAL ---
Patient's Visit Information SATISH SUAZO is a 48 year old F referred to Physical Therapy by Dr. Mirella Bustamante, K[facility] with a diagnosis of Scoliosis. Date of Evaluation: 03/05/23 Physical Therapist: Edwardo Ornelas, DPT, OCS, CSCS - Visit Plan Duration: one more visit Plan: Molded for custom orhtotics to day via DPM for pes planus and LLD and will call when they are fabricated to fit and educate. - Subjective i HAVE Scoliosis with twisted pelvis and doctor wants one side lifted up. . My arches are falling. Has some h/o plantarfasciitis and back pain. Dr. Bustamante wants her to get lifted heel. Sees Dr. bustamante intermittently. Has OA in spine. Will start some ex and does not need help with that. Spends day at home sitting and on feet. Sleep is OK. Typically wears shoes during day and sketcheers. - Objective Walks normal and trasnfers I without UE. R rib hump with flexion, LB AROM WFL and just some slight discomfort end range of ext. L leg 1/8 inch longer. Pes planus B feet giving pronation B feet. Flexibility LE WFL and strength ankles 4+/5 - Goals Goal 1:: Pt I in fit and use of orthotics per doctor order to help with back pain and pes planus Goal Time Frame: 2-4 Weeks - Rehabilitation Potential Physical Therapy Diagnosis: LLD and pes planus Rehabilitation Potential: Good - Anticipated Interventions Patient/Client Instruction: Educate patient on: Condition, Plan of Care For the Purpose of:: To decrease pain Orthotics: Shoe insert For the Purpose of:: To decrease pain Thank you for the opportunity to evaluate your patient. For Medicare and Medicare HMO plans, please review the plan of care and approve it. It will need to be FAXED BACK to us at [phone] for Medicare purposes. For Medicare only, by signing this I certify the plan of care. Please let me know if there are questions or concerns regarding this plan of care. Physician Signature: Date:
--- NOTE | 2023-03-22 10:48 | HP.PTDCSUM ---
Discharge Summary D/C summary: It has been my pleasure to treat SATISH SUAZO referred by Dr. Mirella Bustamante DC, with the diagnosis of Scoliosis for a total of 2 visit(s). Discharge Date: 03/22/23 Please see the following information for a summary of their discharge status. Subjective Subjective: Brought shoes but wants to try without removing factory insole first. Objective Objective/Function: heel lift on R even out LLD in WB nicely. Good fit in shoe despite not wanting me to remove insole. Feels more arch support in slightly different spot on L vs R which may need modified in future if foot doesn't get used ot it. She is aware of this and the weaning process. Goals Goal 1:: Pt I in fit and use of orthotics per doctor order to help with back pain and pes planus Goal Progress: Goal Met Plan Plan: d/c, pt to call if needs modifications or any problems skin integrity. D/C Information d/c sentence: If there are questions or concerns regarding this patient's physical therapy, please feel free to call me at [phone]. Thank you for the referral of this patient. Sincerely, Edwardo Ornelas, DPT, OCS, CSCS
== END 2023-03-22 19:00 | disposition home or self-care (01) ==
LOC: PT 10:30
PROVIDERS: PCP Family Medicine; Visit Provider Chiropractor
DX: M41.25 Other idiopathic scoliosis, thoracolumbar region (principal); M54.9 Dorsalgia, unspecified
CPT/HCPCS: 97161; 97760; 97763

== ENCOUNTER → 2024-04-14 | Outpatient (CLI) | payer OTHER, SELFPAY ==
--- NOTE | 2024-04-14 12:10 | BI_ITS ---
MAMMOGRAPHY - BILATERAL SCREENING REASON FOR EXAM: Female, 49 years old. Routine annual screening examination. PERTINENT HISTORY: Grandmother with breast cancer. TECHNIQUE: Digital bilateral breast kylie (3D mammographic acquisition) in the CC and MLO projections. 2-D mediolateral oblique (MLO) and craniocaudad (CC) views of both breasts were obtained. CAD: Full Field Digital Mammography with Computer Added Detection was performed. COMPARISON: Comparison is made with prior study dated January 30, 2022 and January 17, 2021. FINDINGS: Breast Composition: The breasts are heterogeneously dense, which may obscure small masses. There are no dominant masses or suspicious calcifications. No other significant abnormalities are identified. There has been no significant change since the prior study. BI/SCRN MAMM (CAD)W/KYLIE BILAT IMPRESSION: Stable bilateral screening mammogram. Yearly follow-up mammogram recommended. (A) ASSESSMENT CATEGORY: BIRADS Category 1: Negative. A letter regarding these results will be sent to the patient by the facility within 30 days. Approximately 10% of breast cancers are not detected by mammography. A normal mammogram should not delay biopsy of a clinically suspicious abnormality. [id number] Electronically Signed: Cale Milner MD at 13:18 EDT ,
== END | disposition home or self-care (01) ==
LOC: OPBI 12:09
PROVIDERS: PCP Family Medicine; Referring Provider Family Medicine; Visit Provider Family Medicine
DX: Z12.31 Encounter for screening mammogram for malignant neoplasm of breast (principal); Z80.3 Family history of malignant neoplasm of breast
CPT/HCPCS: 77063; 77067

== ENCOUNTER → 2024-04-23 | Outpatient (CLI) | payer OTHER, SELFPAY ==
[2024-04-29 14:09] LABS: HPV APTIMA, High Risk Negative (Negative)
== END | disposition home or self-care (01) ==
LOC: LABSPEC 15:43
PROVIDERS: PCP Family Medicine; Referring Provider Advanced Practice Midwife; Visit Provider Advanced Practice Midwife
DX: Z12.4 Encounter for screening for malignant neoplasm of cervix (principal)
CPT/HCPCS: 87624; 88175; G0145

== ENCOUNTER → 2024-04-27 | Outpatient (CLI) | payer OTHER, SELFPAY ==
--- NOTE | 2024-04-27 08:18 | US_ITS ---
STUDY: ULTRASOUND OF THE FEMALE PELVIS - COMPLETE REASON FOR EXAM: Female, 49 years old. Abnormal uterine bleeding LMP: April 01, 2024. TECHNIQUE: Transabdominal and Transvaginal TECHNICAL QUALITY: Adequate. COMPARISON: None. FINDINGS: The uterus is anteverted and is in a midline position. The uterus is enlarged and measures 11.7 cm x 6.3 cm x 6.5 cm. There is a Nabothian cyst of the cervix. The endometrium is thickened and measures 11.2 mm in thickness, and is heterogeneous (striated). There is no demonstrated endometrial mass. There is a 2.7 cm x 3.1 cm x 3.8 cm uterine fibroid. There is increased vascularity. I.U.D. - The patient does not have an I.U.D. The right ovary is visualized. The right ovary measures 2.5 cm x 1.6 cm x 1.4 cm. There is no right ovarian cyst or ovarian mass. There is no visualized right adnexal mass or complex lesion. There is normal arterial and normal venous vascularity. The left ovary is visualized. The left ovary measures 2.6 cm x 2.3 cm x 1.2 cm. There is no left ovarian cyst or ovarian mass. There is no visualized left adnexal mass or complex lesion. There is normal arterial and normal venous vascularity. There is no fluid in the cul-de-sac. The pre void volume of the bladder was 88.2 ml. US/Pelvic w/ Transvaginal IMPRESSION: Enlarged fibroid uterus. Thickened endometrium. Electronically Signed: aCle Milner MD at 10:34 EDT ,
== END | disposition home or self-care (01) ==
PROVIDERS: PCP Family Medicine; Referring Provider Advanced Practice Midwife; Visit Provider Advanced Practice Midwife
DX: N93.9 Abnormal uterine and vaginal bleeding, unspecified (principal)
CPT/HCPCS: 76830; 76856

== ENCOUNTER → 2024-07-01 | Outpatient (CLI) | payer OTHER, SELFPAY ==
--- NOTE | 2024-07-01 08:07 | ECHOD_ITS ---
Reason For Study: CONGESTIVE HEART FAILURE Procedure This was a 2D Doppler, Color Flow transthoracic echocardiogram. Myocardial strain analysis was performed in this exam to aid in the assessment of cardiac function. Exam performed in department. Left Ventricle Normal LV size. The left ventricular ejection fraction is 50 %. Stage 1 diastolic dysfunction. There is borderline global hypokinesis of the left ventricle. Right Ventricle Normal RV size. Normal systolic function. Atria Normal left atrium. Normal right atrium. Mitral Valve Equivocal mitral valve prolapse. Tricuspid Valve Normal tricuspid valve. Aortic Valve Trisinus/trileaflet aortic valve. Pulmonic Valve Normal pulmonic valve. Great Vessels Normal aortic root. The pulmonary artery is normal size. Normal inferior vena cava. Pericardium/Pleural No pericardial effusion. MMode/2D Measurements & Calculations LVIDd: 4.1 cm IVSd: 1.1 cm LVOT diam: 2.1 cm LVIDs: 2.6 cm LVPWd: 1.1 cm LVOT area: 3.3 cm2 RVDd: 2.0 cm FS: 35.7 % asc Aorta Diam: 2.9 cm LAV(MOD-bp): 28.2 ml LVAd ap4: 21.0 cm2 LAV(MOD-bp) Indexed: 14.9 ml/m2 LVLd ap4: 6.7 cm LAV(MOD-sp2): 29.2 ml EDV(MOD-sp4): 54.7 ml LAV(MOD-sp4): 27.2 ml EDV(sp4-el): 55.8 ml LVAs ap4: 13.7 cm2 LVLs ap4: 5.7 cm ESV(MOD-sp4): 28.0 ml ESV(sp4-el): 27.9 ml EF(MOD-sp4): 48.8 % EF(sp4-el): 49.9 % LVAd ap2: 20.1 cm2 SV(MOD-sp4): 26.7 ml SV(MOD-sp2): 24.3 ml LVLd ap2: 7.1 cm EDV(MOD-sp2): 48.2 ml EDV(sp2-el): 48.5 ml LVAs ap2: 13.5 cm2 LVLs ap2: 6.4 cm ESV(MOD-sp2): 23.9 ml ESV(sp2-el): 24.1 ml EF(MOD-sp2): 50.4 % SV(sp4-el): 27.8 ml Ao sinus diam: 3.[address] Junction: 2.8 cm LA dimension(2D): 3.3 cm LA A4 area: 12.0 cm2 RA A4 area: 8.5 cm2 TAPSE: 1.9 cm Time Measurements MV dec time: 0.27 sec Doppler Measurements & Calculations MV E max britton: 51.1 cm/sec Lat Peak E' Britton: 11.4 cm/sec Med Peak E' Britton: 9.9 cm/sec MV A max britton: 79.7 cm/sec E/E' lat: 4.5 E/E' med: 5.2 MV E/A: 0.64 MV dec slope: 190.8 cm/sec2 Ao V2 max: 108.7 cm/sec LV V1 max: 75.5 cm/sec Ao max P.7 mmHg LV V1 max P.3 mmHg Ao V2 mean: 82.1 cm/sec LV V1 mean P.6 mmHg Ao mean P.0 mmHg LV V1 mean: 60.5 cm/sec Ao V2 VTI: 20.6 cm LV V1 VTI: 13.3 cm AV (velocity ratio): 0.65 JONI(I,D): 2.2 cm2 JONI(V,D): 2.3 cm2 SV(LVOT): 44.7 ml PA V2 max: 79.3 cm/sec PA max PG (full): 0.78 mmHg ECHO/Echo Complete Interpretation Summary Normal LV size. The left ventricular ejection fraction is 50 %. Stage 1 diastolic dysfunction. The global longitudinal strain is moderately abnormal. The global longitudinal strain = -11.8% (abnormal). The global longitudinal strain = -11.8% (abnormal). The global longitudinal str ain is moderately abnormal. Ordering Physician: Tuan Antonio Referring Physician: Tuan Antonio Performed By: Callie Buck RDCS and Student
[2024-07-01 08:58] LABS: ALB/GLOB Ratio 0.9 RATIO (0.9-2.4); AST(SGOT) 12 U/L (15-37); Alanine Aminotransfer ALT/SGPT 27 U/L (13-56); Albumin, Serum 3.6 g/dL (3.2-5.0); Alkaline Phosphatase 67 U/L (45-117); Anion Gap 4 (5-15); BUN 12 mg/dL (7-18); BUN/Creat Ratio 12.3 RATIO (10-20); Calcium,Total 9.6 mg/dL (8.5-10.1); Chloride 106 mmol/L (98-107); Cholesterol 223 mg/dL (200); Creatinine, Serum 0.97 mg/dL (0.55-1.02); EST Glomerular Filtration Rate 65 mL/min (>60); Est Glom Filt Rate - Afr Amer 79 mL/min (>60); Globulin 3.8 g/dL (2.2-4.2); Glucose 97 mg/dL (74-106); High Density Lipoprotein 64 mg/dL; Protein, Total 7.4 g/dL (6.4-8.2); Sodium Level 138 mmol/L (136-145); Triglycerides 114 mg/dL; Very Low Density Lipoprotein 23 mg/dL (5-40)
== END | disposition home or self-care (01) ==
PROVIDERS: PCP Family Medicine; Referring Provider Family Medicine; Visit Provider Family Medicine
DX: I42.0 Dilated cardiomyopathy (principal); I50.9 Heart failure, unspecified; I34.1 Nonrheumatic mitral (valve) prolapse; E78.2 Mixed hyperlipidemia; Z13.1 Encounter for screening for diabetes mellitus
CPT/HCPCS: 36415; 80053; 80061; 93306

== ENCOUNTER → 2024-09-15 | Outpatient (CLI) | payer OTHER, SELFPAY ==
--- NOTE | 2024-09-15 08:59 | US_ITS ---
HISTORY: abnormal bleeding. TECHNIQUE: Transabdominal and transvaginal pelvic ultrasound was performed with gore scale and color Doppler evaluation. 75 images. COMPARISON: 04/27/2024. FINDINGS: UTERUS: 11.8 x 5 x 6.2 cm. 2.7 x 2.8 x 3.2 cm round hypoechoic lesion, previously 2.7 x 2.8 x 3.1 cm. Multiple nabothian cysts in the cervix ENDOMETRIAL THICKNESS: 7 mm. RIGHT OVARY: 1.7 x 2.1 x 2.8 cm. No adnexal masses. LEFT OVARY: 1.2 x 1.8 x 3.1 cm. No adnexal masses. FREE FLUID: None. URINARY BLADDER: Unremarkable at 248 cc. US/Pelvic w/ Transvaginal IMPRESSION: No significant interval change in size of 3.2 cm uterine leiomyoma. Electronically Signed: Lillian Lewis MD at 8:39 EST ,
== END | disposition home or self-care (01) ==
LOC: OPUS 08:57
PROVIDERS: PCP Family Medicine; Referring Provider Obstetrics & Gynecology; Visit Provider Obstetrics & Gynecology
DX: N93.9 Abnormal uterine and vaginal bleeding, unspecified (principal)
CPT/HCPCS: 76830; 76856

== ENCOUNTER 2024-09-24 07:54 | Day surgery (SDC) | payer OTHER, SELFPAY ==
--- NOTE | 2024-09-23 13:06 | PAT.ANESEVAL ---
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 When Was Last Pacemaker Check QUESTION #4 FULL TEXT: You/Your Family Experience fever (hyperthermia) with Anesthesia Last Oral Intake Last Oral intake: Last Oral Intake NPO since Meds taken in AM with sips of water? Meds patient instructed to take am of surgery PONV PONV - magistrate assistant: PONV - magistrate assistant Female No 09/23/24 09:30 HX of Motion Sickness No 09/23/24 09:30 HX of N/V After Surgery No 09/23/24 09:30 Non-Smoker Yes 09/23/24 09:30 Duration of Surgery greater No 09/23/24 09:30 than 60 minutes Number of Risk Factors 1 09/23/24 09:30 PONV Score Low Risk 09/23/24 09:30 Height & Weight Height & Weight: Anesthesia: Height & Weight Height 5 ft 6 in 06/11/24 13:31 Respiratory Assessment Respiratory Assessment - magistrate assistant: Respiratory Tract Infection Hx - magistrate assistant Hx Respiratory Tract Infection No 09/23/24 09:30 STOP Sleep Apnea STOP Sleep Apnea - magistrate assistant: STOP Sleep Apnea - magistrate assistant Hx Hypertension No 09/23/24 09:30 Hx Sleep Apnea Yes 09/23/24 09:30 CPAP No 09/23/24 09:30 BIPAP No 09/23/24 09:30 Do you snore loudly (louder than talking or can be heard Do you often feel tired/ fatigued/ sleepy during daytime? Has anyone observed you stop breathing during sleep? STOP Results Positive 09/23/24 09:30 QUESTION #5 FULL TEXT : Do you snore loudly (louder than talking or can be heard through closed doors)? 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 Specify any problems Hx of Preganancy in last 3 N/A 09/23/24 09:30 Months Nurse Filling Out Transfusion NBU[facility]ER 09/23/24 09:30 & Questions: Date: 09/23/24 09/23/24 09:30 Time: 09:30 09/23/24 09:30 Patient unable to answer at this time (ie. confused, unrespo /Reproduction History /Reproductive History - magistrate assistant: /Reproductive Hx- magistrate assistant Hx Now Gestational Age (in weeks): EDC: Hx Hx Para Hx Section SAB No 09/23/24 09:30 PFSH Medical History Moderate episode of recurrent major depressive disorder Dilated cardiomyopathy Mild intermittent asthma without complication Gastric reflux Wears contact lenses Wears glasses Fatty liver History of echocardiogram Cardiology follow-up encounter Scoliosis Hyperlipemia Sleep apnea Asthma Seasonal allergies Nonrheumatic mitral (valve) prolapse Family history of hypertension Lumbar herniated disc Chronic back pain Depression Anxiety Celiac disease Cardiomyopathy in disease classified elsewhere CHF (congestive heart failure) Mixed hyperlipidemia Status post left L5-S1 microdiscectomy Left L5-S1 herniated disc Mitral valve prolapse Peripartum cardiomyopathy Home Medications ?Medication ?Instructions ?Recorded ?Last Taken ?Type omega-3 fatty acids-fish oil 684 2 ea PO DAILY 02/14/14 09/21/24 History mg-1,200 mg capsule,delayed release turmeric 450 mg-turmeric root 2,000 mg PO DAILY 10/11/16 09/21/24 History extract 50 mg capsule chromium picolinate 200 mcg tablet 200 mcg PO DAILY 01/16/22 Unknown History coenzyme Q10 75 mg capsule (Ultra 75 mg PO DAILY 01/16/22 Unknown History CoQ10) fexofenadine 180 mg tablet 180 mg PO DAILY 01/16/22 Unknown History (Marcy Allergy) sour zhong extract 1,000 mg 2,400 mg PO DAILY 01/16/22 Unknown History capsule (Tart Zhong Extract) digestive enzymes 1 cap PO DAILY 02/26/22 Unknown History albuterol sulfate 2.5 mg/3 mL 2.5 mg inhalation Q4-6H PRN 06/11/24 Unknown History (0.083 %) solution for nebulization bronchospasm ascorbic acid 125 mg-collagen, 1 cap PO DAILY 06/11/24 Unknown History hydrolyzed 740 mg capsule (Collagen Plus Vitamin C) black cohosh 200 mg capsule 200 mg PO QDAY 06/11/24 Unknown History diphenhydramine HCl 25 mg tablet 25 mg PO QHS allergy symptoms 06/11/24 Unknown History (Benadryl Allergy) magnesium oxide 800 mg PO QDAY 06/11/24 Unknown History multivitamin 1 tab PO QAM 06/11/24 Unknown History progesterone micronized 4 % 1 appful vaginal Q OTHER DAY 06/11/24 Unknown History vaginal gel pantoprazole 40 mg tablet,delayed 40 mg PO DAILY 07/07/24 Unknown History release bupropion HCl 150 mg 24 hr tablet, 150 mg PO TID 09/23/24 Unknown History extended release ginkgo biloba 120 mg tablet 240 mg PO DAILY 09/23/24 Unknown History melatonin 10 mg capsule 10 mg PO QHS 09/23/24 Unknown History quercetin 500 mg capsule 1,000 mg PO DAILY 09/23/24 Unknown History spironolactone 25 mg tablet 25 mg PO DAILY 09/23/24 Unknown History venlafaxine 150 mg 300 mg PO DAILY 09/23/24 Unknown History capsule,extended release 24 hr vit B comp-E 30 unit-folic acid 2 tab PO DAILY 09/23/24 Unknown History 400 [id number] 80 mg tablet (Menopause Support) vitamin D3 1,250 mcg (50,000 1 cap PO DAILY 09/23/24 Unknown History unit)-vitamin K2 200 mcg capsule (Decara K) Allergy/AdvReac Type Severity Reaction Status Date / Time grass pollen Allergy Intermediate Hives Verified 09/23/24 09:19 mold Allergy Intermediate Hives Verified 09/23/24 09:19 oxycodone (From Percocet) Allergy Intermediate Hives Verified 09/23/24 09:19 adhesive tape Allergy Hives Verified 09/23/24 09:19 latex Allergy Itching Verified 09/23/24 09:19 Family History Mother Hypertension CHF (congestive heart failure) Asthma Arthritis Heart disease Hyperlipidemia Thyroid disorder Grandfather Alcoholism Colon cancer In his late 40's. Cancer Father Depression Cancer Skin cancer Colon polyps Grandmother Breast cancer Bowel disease Diabetes Myocardial infarction Heart disease CVA (cerebral vascular accident) Surgical History History of tubal ligation H/O section History of microdiscectomy (~12/10/16) Social History household members: spouse and children current occupation: [employer] Smoking Status: Never smoker alcohol intake: current alcohol intake frequency: a few times a week substance use type: does not use diet: gluten free and other what type of physical activity do you participate in: none seatbelt use: always do you feel safe at home: Yes additional social history: - Ray Audit: Pertinent Findings Pertinent Findings EKG Perinent findings: 12/04/2016 normal sinus rhythm rate of 75 bpm incomplete right bundle branch block Echo (EF%) pertinent findings: 08/31/2024 EF 50% Consult pertinent findings: Cardiology 10/21/2017 peripartum cardiomyopathy doing well continue current therapy history of CHF does not appear to have any evidence of ongoing CHF mitral valve prolapse follow over time no significant change or history Recommendation Anesthesia Recommendation Anesthesia recommendation: OPTIMIZED for anesthesia
--- NOTE | 2024-09-24 07:59 | PCM.PRE.AN2 ---
ASA Classification* ASA Classification ASA Classification: 2 Assessment & Plan Anesthesia* Anesthesia Assessment Anesthesia Assessment: Discussed sedation and/or anesthesia options, risks, benefits, and alternatives with patient/parents/legal guardian/POA. Questions invited. The patient/parents/legal guardian/POA seems to understand and agrees to proceed with anesthesia plan. Reviewed the physical assessment, medical history, allergy history and patient home medications list prior to surgery/procedure/anesthetic and documented any changes. Performed airway and anesthesia risk assessments. Anesthesia Type Anesthesia Type: MAC Anesthesia Focused Assessment* Airway Assessment Mouth opens: >3 cm Mallampati Score: II Focused Labs Anesthesia Preop lab: CBC WBC 8.7 K/mm3 (4.4-11.0) 02/06/22 08:59 RBC 4.62 M/mm3 (4.2-5.4) 02/06/22 08:59 Hgb 13.7 g/dL (12.0-15.0) 02/06/22 08:59 Hct 41.6 % (37-47) 02/06/22 08:59 Plt Count 464 K/mm3 (150-450) H 02/06/22 08:59 CHEMISTRY Potassium 4.0 mmol/L (3.5-5.1) 07/01/24 08:10 Sodium 138 mmol/L (136-145) 07/01/24 08:10 BUN 12 mg/dL (7-18) 07/01/24 08:10 Creatinine 0.97 mg/dL (0.55-1.02) 07/01/24 08:10 Glucose 97 mg/dL (74-106) 07/01/24 08:10 TSH 1.88 uIU/mL (0.358-3.74) 02/06/22 08:59 COAG Pre-Assessment Diagnosis/Proposed Procedure Planned Operative Procedure(s): colonoscopy Anesthesia History 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 When Was Last Pacemaker Check QUESTION #4 FULL TEXT: You/Your Family Experience fever (hyperthermia) with Anesthesia Last Oral Intake Last Oral intake: Last Oral Intake NPO since Meds taken in AM with sips of water? Meds patient instructed to take am of surgery PONV PONV - insurance underwriter sales: PONV - insurance underwriter sales Female No 09/23/24 09:30 HX of Motion Sickness No 09/23/24 09:30 HX of N/V After Surgery No 09/23/24 09:30 Non-Smoker Yes 09/23/24 09:30 Duration of Surgery greater No 09/23/24 09:30 than 60 minutes Number of Risk Factors 1 09/23/24 09:30 PONV Score Low Risk 09/23/24 09:30 Height & Weight Height & Weight: Anesthesia: Height & Weight Height 5 ft 6 in 08/17/24 13:22 Respiratory Assessment Respiratory Assessment - insurance underwriter sales: Respiratory Tract Infection Hx - insurance underwriter sales Hx Respiratory Tract Infection No 09/23/24 09:36 STOP Sleep Apnea STOP Sleep Apnea - insurance underwriter sales: STOP Sleep Apnea - insurance underwriter sales Hx Hypertension No 09/23/24 09:36 Hx Sleep Apnea Yes 09/23/24 09:36 CPAP No 09/23/24 09:36 BIPAP No 09/23/24 09:36 Do you snore loudly (louder than talking or can be heard Do you often feel tired/ fatigued/ sleepy during daytime? Has anyone observed you stop breathing during sleep? STOP Results Positive 09/23/24 09:30 QUESTION #5 FULL TEXT : Do you snore loudly (louder than talking or can be heard through closed doors)? Tobacco Use History Tobacco Use History - insurance underwriter sales: Tobacco Use History - insurance underwriter sales Tobacco Use Smoking Status Never smoker 09/23/24 09:36 Hx Tobacco Use No 09/23/24 09:36 Years Smoking Packs Smoked per Day Smoking Cessation Date was within the last 15 years Hx Smoking Cessation Date Hx Smoking Cessation Counseling Hematologic Medial History Hematologic Hx - insurance underwriter sales: Hematologic Medical Hx - water pumper Hx of Blood Transfusion No 09/23/24 09:30 Hx of Transfusion in last 3 No 09/23/24 09:30 Months Date of Last Transfusion (if within last 3 months) Ever experience any problems No 09/23/24 09:30 with transfusion(s)? Specify any problems Hx of Preganancy in last 3 N/A 09/23/24 09:30 Months Nurse Filling Out Transfusion [facility] 09/23/24 09:30 & Questions: Date: 09/23/24 09/23/24 09:30 Time: 09:30 09/23/24 09:30 Patient unable to answer at this time (ie. confused, unrespo /Reproduction History /Reproductive History - insurance underwriter sales: /Reproductive Hx- insurance underwriter sales Hx Now Gestational Age (in weeks): EDC: Hx Hx Para Hx Section SAB No 09/23/24 09:36 [facility] Medical History Moderate episode of recurrent major depressive disorder Dilated cardiomyopathy Mild intermittent asthma without complication Gastric reflux Wears contact lenses Wears glasses Fatty liver History of echocardiogram Cardiology follow-up encounter Scoliosis Hyperlipemia Sleep apnea Asthma Seasonal allergies Nonrheumatic mitral (valve) prolapse Family history of hypertension Lumbar herniated disc Chronic back pain Depression Anxiety Celiac disease Cardiomyopathy in disease classified elsewhere CHF (congestive heart failure) Mixed hyperlipidemia Status post left L5-S1 microdiscectomy Left L5-S1 herniated disc Mitral valve prolapse Peripartum cardiomyopathy Home Medications ?Medication ?Instructions ?Recorded ?Last Taken ?Type omega-3 fatty acids-fish oil 684 2 ea PO DAILY 02/14/14 09/21/24 History mg-1,200 mg capsule,delayed release turmeric 450 mg-turmeric root 2,000 mg PO DAILY 10/11/16 09/21/24 History extract 50 mg capsule chromium picolinate 200 mcg tablet 200 mcg PO DAILY 01/16/22 Unknown History coenzyme Q10 75 mg capsule (Ultra 75 mg PO DAILY 01/16/22 Unknown History CoQ10) fexofenadine 180 mg tablet 180 mg PO DAILY 01/16/22 Unknown History (Marcy Allergy) sour barker extract 1,000 mg 2,400 mg PO DAILY 01/16/22 Unknown History capsule (Tart Barker Extract) digestive enzymes 1 cap PO DAILY 02/26/22 Unknown History albuterol sulfate 2.5 mg/3 mL 2.5 mg inhalation Q4-6H PRN 06/11/24 Unknown History (0.083 %) solution for nebulization bronchospasm ascorbic acid 125 mg-collagen, 1 cap PO DAILY 06/11/24 Unknown History hydrolyzed 740 mg capsule (Collagen Plus Vitamin C) black cohosh 200 mg capsule 200 mg PO QDAY 06/11/24 Unknown History diphenhydramine HCl 25 mg tablet 25 mg PO QHS allergy symptoms 06/11/24 Unknown History (Benadryl Allergy) magnesium oxide 800 mg PO QDAY 06/11/24 Unknown History multivitamin 1 tab PO QAM 06/11/24 Unknown History progesterone micronized 4 % 1 appful vaginal Q OTHER DAY 06/11/24 Unknown History vaginal gel pantoprazole 40 mg tablet,delayed 40 mg PO DAILY 07/07/24 Unknown History release bupropion HCl 150 mg 24 hr tablet, 150 mg PO TID 09/23/24 Unknown History extended release ginkgo biloba 120 mg tablet 240 mg PO DAILY 09/23/24 Unknown History melatonin 10 mg capsule 10 mg PO QHS 09/23/24 Unknown History quercetin 500 mg capsule 1,000 mg PO DAILY 09/23/24 Unknown History spironolactone 25 mg tablet 25 mg PO DAILY 09/23/24 Unknown History venlafaxine 150 mg 300 mg PO DAILY 09/23/24 Unknown History capsule,extended release 24 hr vit B comp-E 30 unit-folic acid 2 tab PO DAILY 09/23/24 Unknown History 400 [id number] 80 mg tablet (Menopause Support) vitamin D3 1,250 mcg (50,000 1 cap PO DAILY 09/23/24 Unknown History unit)-vitamin K2 200 mcg capsule (Decara K) Allergy/AdvReac Type Severity Reaction Status Date / Time grass pollen Allergy Intermediate Hives Verified 09/23/24 09:19 mold Allergy Intermediate Hives Verified 09/23/24 09:19 oxycodone (From Percocet) Allergy Intermediate Hives Verified 09/23/24 09:19 adhesive tape Allergy Hives Verified 09/23/24 09:19 latex Allergy Itching Verified 09/23/24 09:19 Family History Mother Hypertension CHF (congestive heart failure) Asthma Arthritis Heart disease Hyperlipidemia Thyroid disorder Grandfather Alcoholism Colon cancer In his late 40's. Cancer Father Depression Cancer Skin cancer Colon polyps Grandmother Breast cancer Bowel disease Diabetes Myocardial infarction Heart disease CVA (cerebral vascular accident) Surgical History History of tubal ligation H/O section History of microdiscectomy (~12/10/16) Social History household members: spouse and children current occupation: [employer] Smoking Status: Never smoker alcohol intake: current alcohol intake frequency: a few times a week substance use type: does not use diet: gluten free and other what type of physical activity do you participate in: none seatbelt use: always do you feel safe at home: Yes additional social history: - Ray Review of Systems (Anesthesia) ROS Narrative System reviewed and no additional complaints, except as documented.
[2024-09-24 08:21] VITALS: BP 125/81; PULSE 99; RESP 18; TEMP 36.8; O2SAT 99; BMI 29.1
--- NOTE | 2024-09-24 08:51 | PCM.HP.STD ---
[facility] - General General Date of Admission: 10/14/24 Date of Service: 09/24/24 Chief Complaint: Screening colonoscopy HPI Narrative SATISH SUAZO, is a 49 F who presents today for screening colonoscopy. She has never had a colonoscopy in the past. She only has past medical history of mild gastroesophageal reflux disease but she also has a past medical history of congestive heart failure secondary peripartum cardiomyopathy with nonrheumatic mitral valve prolapse. She has not having any chest pain or shortness of breath. [facility] Medical History Moderate episode of recurrent major depressive disorder Dilated cardiomyopathy Mild intermittent asthma without complication Gastric reflux Wears contact lenses Wears glasses Fatty liver History of echocardiogram Cardiology follow-up encounter Scoliosis Hyperlipemia Sleep apnea Asthma Seasonal allergies Nonrheumatic mitral (valve) prolapse Family history of hypertension Lumbar herniated disc Chronic back pain Depression Anxiety Celiac disease Cardiomyopathy in disease classified elsewhere CHF (congestive heart failure) Mixed hyperlipidemia Status post left L5-S1 microdiscectomy Left L5-S1 herniated disc Mitral valve prolapse Peripartum cardiomyopathy Home Medications ?Medication ?Instructions ?Recorded ?Last Taken ?Type omega-3 fatty acids-fish oil 684 2 ea PO DAILY 02/14/14 09/21/24 History mg-1,200 mg capsule,delayed release turmeric 450 mg-turmeric root 2,000 mg PO DAILY 10/11/16 09/21/24 History extract 50 mg capsule chromium picolinate 200 mcg tablet 200 mcg PO DAILY 01/16/22 09/23/24 History coenzyme Q10 75 mg capsule (Ultra 75 mg PO DAILY 01/16/22 09/23/24 History CoQ10) fexofenadine 180 mg tablet 180 mg PO DAILY 01/16/22 09/23/24 History (Marcy Allergy) sour barker extract 1,000 mg 2,400 mg PO DAILY 01/16/22 09/21/24 History capsule (Tart Barker Extract) digestive enzymes 1 cap PO DAILY 02/26/22 Unknown History albuterol sulfate 2.5 mg/3 mL 2.5 mg inhalation Q4-6H PRN 06/11/24 Unknown History (0.083 %) solution for nebulization bronchospasm ascorbic acid 125 mg-collagen, 1 cap PO DAILY 06/11/24 Unknown History hydrolyzed 740 mg capsule (Collagen Plus Vitamin C) black cohosh 200 mg capsule 200 mg PO QDAY 06/11/24 09/23/24 History diphenhydramine HCl 25 mg tablet 25 mg PO QHS allergy symptoms 06/11/24 09/21/24 History (Benadryl Allergy) magnesium oxide 800 mg PO QDAY 06/11/24 09/22/24 History multivitamin 1 tab PO QAM 06/11/24 Unknown History progesterone micronized 4 % 1 appful vaginal Q OTHER DAY 06/11/24 09/23/24 History vaginal gel pantoprazole 40 mg tablet,delayed 40 mg PO DAILY 07/07/24 09/23/24 History release bupropion HCl 150 mg 24 hr tablet, 150 mg PO TID 09/23/24 09/23/24 History extended release ginkgo biloba 120 mg tablet 240 mg PO DAILY 09/23/24 09/23/24 History melatonin 10 mg capsule 10 mg PO QHS 09/23/24 09/22/24 History quercetin 500 mg capsule 1,000 mg PO DAILY 09/23/24 09/23/24 History spironolactone 25 mg tablet 25 mg PO DAILY 09/23/24 09/23/24 History venlafaxine 150 mg 300 mg PO DAILY 09/23/24 09/23/24 History capsule,extended release 24 hr vit B comp-E 30 unit-folic acid 2 tab PO DAILY 09/23/24 09/22/24 History 400 gmc-[id number] 80 mg tablet (Menopause Support) vitamin D3 1,250 mcg (50,000 1 cap PO DAILY 09/23/24 09/23/24 History unit)-vitamin K2 200 mcg capsule (Decara K) Allergy/AdvReac Type Severity Reaction Status Date / Time grass pollen Allergy Intermediate Hives Verified 09/24/24 08:17 mold Allergy Intermediate Hives Verified 09/24/24 08:17 oxycodone (From Percocet) Allergy Intermediate Hives Verified 09/24/24 08:17 adhesive tape Allergy Hives Verified 09/24/24 08:17 latex Allergy Itching Verified 09/24/24 08:17 Family History Mother Hypertension CHF (congestive heart failure) Asthma Arthritis Heart disease Hyperlipidemia Thyroid disorder Grandfather Alcoholism Colon cancer In his late 40's. Cancer Father Depression Cancer Skin cancer Colon polyps Grandmother Breast cancer Bowel disease Diabetes Myocardial infarction Heart disease CVA (cerebral vascular accident) Surgical History History of tubal ligation H/O section History of microdiscectomy (~12/10/16) Social History household members: spouse and children current occupation: [employer] Smoking Status: Never smoker alcohol intake: current alcohol intake frequency: a few times a week substance use type: does not use diet: gluten free and other what type of physical activity do you participate in: none seatbelt use: always do you feel safe at home: Yes additional social history: - Ray ROS Constitutional Constitutional: Denies fatigue, fever(s), poor appetite, weight gain or weight loss Gastrointestinal Gastrointestinal: Denies belching, bloating, change in bowel habits, change in stool character, chewing difficulty, coffee ground emesis, constipation, cramping, diarrhea, dyspepsia, dysphagia, early satiety, excessive flatus, fecal incontinence, heartburn, hematemesis, hematochezia, hemorrhoids, loose stools, melena, nausea, odynophagia, rectal bleeding, tenesmus, vomiting or weight changes Vital Signs Vital Signs Vital Signs: 09/24/24 08:21 09/24/24 08:21 Temperature 98.2 F Temperature Source Temporal Pulse Rate 99 Respiratory Rate 18 Respiratory Pattern Normal Blood Pressure 125/81 H Blood Pressure Mean 95 Blood Pressure Source Monitor Blood Pressure Position Semi-Fowlers Blood Pressure Location Left Arm Pulse Ox 99 Oxygen Delivery Method Room Air Weight Weight: 180 lb 8.937 oz Body Mass Index (BMI) 29.1 Physical Exam Const alert, oriented x3, no apparent distress and healthy appearing General Appearance: cooperative GI normal to inspection, nondistended, normoactive bowel sounds, soft to palpation, non-tender and non-distended Percussion: normal to percussion Rectal Exam: deferred Assessment & Plan Assessment/Plan (1) Encounter for screening for malignant neoplasm of colon: PLAN: She was explained alternatives, risk and benefits include not withstanding bleeding, infection, sepsis, perforation, need emergent urgent . She we will have an ASA of 3.
[2024-09-24 09:30] VITALS: BP 125/81; BP 94/82; PULSE 90; RESP 16; TEMP 37.3; O2SAT 99
--- NOTE | 2024-09-24 09:32 | OP.COLON_ITS ---
Patient Name: Kayy Zeng Procedure Date: 09/24/2024 9:00 AM Date of : 1975 Age: 49 Procedure: Colonoscopy Indications: Screening for colorectal malignant neoplasm Providers: DO Yessi Schulz MD: Tuan Antonio Medicines: Monitored Anesthesia Care Patient Profile: This is a 49 year old female. Refer to note in patient chart for documentation of history and physical. Last Colonoscopy: none. The patient's first colonoscopy is today. Complications: No immediate complications. Procedure: Pre-Anesthesia Assessment: - Prior to the procedure, a History and Physical was performed, and patient medications and allergies were reviewed. The patient is competent. The risks and benefits of the procedure and the sedation options and risks were discussed with the patient. All questions were answered and informed consent was obtained. Patient identification and proposed procedure were verified by the physician. Mental Status Examination: alert and oriented. Airway Examination: normal oropharyngeal airway and neck mobility. Respiratory Examination: clear to auscultation. CV Examination: normal. ASA Grade Assessment: II - A patient with mild systemic disease. After reviewing the risks and benefits, the patient was deemed in satisfactory condition to undergo the procedure. The anesthesia plan was to use monitored anesthesia care (MAC). Immediately prior to administration of medications, the patient was re-assessed for adequacy to receive sedatives. The heart rate, respiratory rate, oxygen saturations, blood pressure, adequacy of pulmonary ventilation, and response to care were monitored throughout the procedure. The physical status of the patient was re-assessed after the procedure. After I obtained informed consent, the scope was passed under direct vision. Throughout the procedure, the patient's blood pressure, pulse, and oxygen saturations were monitored continuously. The pediatric colonoscope was introduced through the anus and advanced to the cecum, identified by appendiceal orifice and ileocecal valve. The colonoscopy was performed without difficulty. The patient tolerated the procedure well. The quality of the bowel preparation was adequate. The ileocecal valve, appendiceal orifice, and rectum were photographed. Scope In: 9:08:40 AM Scope Withdrawal Time 0 hours 6 minutes 19 seconds Scope Out: 9:24:51 AM Total Procedure Duration Time 0 hours 16 minutes 11 seconds Findings: The perianal and digital rectal examinations were normal. The entire examined colon appeared normal on direct and retroflexion views. Impression: - The entire examined colon is normal on direct and retroflexion views. - No specimens collected. Recommendation: - Discharge patient to home. - Resume previous diet. - Continue present medications. - Repeat colonoscopy in 10 years for screening purposes. Procedure Code(s): --- Professional --- G0121, Colorectal cancer screening; colonoscopy on individual not meeting criteria for high risk CPT copyright 2021 [employer]. All rights reserved. The codes documented in this report are preliminary and upon senior trainer review may be revised to meet current compliance requirements. Jacinto Friend DO 09/24/2024 9:32:34 AM This report has been signed electronically. Number of Addenda: 0 Note Initiated On: 09/24/2024 9:00 AM
--- NOTE | 2024-09-24 09:32 | PCM.POST.ANE ---
Anesthesia: Postop Eval I Current Vital Signs Temperature: 99.1 F Pulse Rate: 89 Blood Pressure: 94/82 Respiratory Rate: 16 Pulse Ox: 99 Oxygen Delivery Method: Room Air Assessment Airway patent: Yes Spontaneous unlabored respirations: Yes Mental status: Awake and Calm nausea: No Vomiting: No Anesthesia Complication: No Fluid Hydration Crystalloid volume administer (ml): 40 Total IV fluid infused: 40 Progress Note Anesthesia document: Postop Eval 1 completed: Yes
[2024-09-24 09:33] VITALS: BP 94/82; PULSE 89; RESP 16; TEMP 37.3; O2SAT 99
--- NOTE | 2024-09-24 09:33 | OP.CCLET_ITS ---
09/24/2024 Tuan Antonio Re : Colonoscopy procedure for Kayy Zeng Dear Paco This procedure was performed on September. My impressions and recommendations are as follows: Impressions : - The entire examined colon is normal on direct and retroflexion views. - No specimens collected. Recommendations : - Discharge patient to home. - Resume previous diet. - Continue present medications. - Repeat colonoscopy in 10 years for screening purposes. My findings are described in the full procedure note, which is enclosed. If I can be of further assistance, please feel free to contact me at . Sincerely, Jacinto Friend, 09/24/2024 9:32:34 AM This report has been signed electronically.
[2024-09-24 09:35] VITALS: BP 108/75; BP 125/81; PULSE 85; RESP 14; O2SAT 99
[2024-09-24 09:40] VITALS: BP 125/81; BP 99/72; PULSE 94; RESP 14; TEMP 37.4; O2SAT 99
[2024-09-24 10:02] VITALS: BP 125/81
--- NOTE | 2024-09-24 11:43 | PCM.POSTANE2 ---
Anesthesia Postop Eval I Sum Postop Eval Completion status Anesthesia document: Postop Eval 1 completed: Yes Anesthesia Postop Eval I Summary Anesthesia Postop Eval I Summary: Anesthesia Postop Eval I: Assessment Summary Airway patent Yes 09/24/24 09:33 [email or web address] Spontaneous unlabored Yes 09/24/24 09:33 [email or web address] respirations Mental status Awake,Calm 09/24/24 09:33 [email or web address] nausea No 09/24/24 09:33 [email or web address] Vomiting No 09/24/24 09:33 [email or web address] Anesthesia Postop Eval I: Fluid Summary Crystalloid volume administer 40 09/24/24 09:33 [email or web address] (ml) Colloids volume administered ( ml) Blood Product volume administered (ml) Total IV fluid infused 40 09/24/24 09:33 [email or web address] Anesthesia Postop Eval I: Summary Notes Anesthesia Complication No 09/24/24 09:33 [email or web address] Anesthesia Complication Comment: Post-operative progress note Anesthesia: Postop Eval II Evaluation Mental status: Awake Pain Level: 0 nausea: No Vomiting: No
== END 2024-09-24 10:17 | disposition home or self-care (01) ==
LOC: EN 07:56 → AC 08:07
PROVIDERS: PCP Family Medicine; Referring Provider Family Medicine; Visit Provider Internal Medicine Gastroenterology
PROC: 0DJD8ZZ Inspection of Lower Intestinal Tract, Via Natural or Artificial Opening Endoscopic (ICD-10-PCS; CPT 45378; principal; 2024-09-24 08:55)
DX: Z12.11 Encounter for screening for malignant neoplasm of colon (principal); I11.0 Hypertensive heart disease with heart failure; I50.9 Heart failure, unspecified; Z79.51 Long term (current) use of inhaled steroids
CPT/HCPCS: 45378; A4216; J2405

== ENCOUNTER → 2024-09-29 | Outpatient (CLI) | payer OTHER, SELFPAY ==
[2024-09-29 12:41] LABS: Hematocrit 40.9 % (37-47); Mean Corp Hgb Conc 31.8 g/dL (32-36); Mean Corpuscular Hgb 27.7 pg (27.0-32.0); Mean Corpuscular Volume 87.2 fL (81-99); Mean Platelet Vol. 8.8 fl (6.2-12.0); Platelet Count 449 K/mm3 (150-450); RBC Distribution Width CV 13.1 % (11.6-14.6); RBC Distribution Width SD 41.8 fl (35.1-43.9); Red Blood Count 4.69 M/mm3 (4.2-5.4)
[2024-09-29 13:03] LABS: ALB/GLOB Ratio 0.9 RATIO (0.9-2.4); AST(SGOT) 15 U/L (15-37); Alanine Aminotransfer ALT/SGPT 18 U/L (13-56); Albumin, Serum 3.7 g/dL (3.2-5.0); Alkaline Phosphatase 74 U/L (45-117); Anion Gap 5 (5-15); BUN 14 mg/dL (7-18); BUN/Creat Ratio 14.3 RATIO (10-20); Calcium,Total 10.2 mg/dL (8.5-10.1); Chloride 102 mmol/L (98-107); Creatinine, Serum 0.98 mg/dL (0.55-1.02); EST Glomerular Filtration Rate 65 mL/min (>60); Est Glom Filt Rate - Afr Amer 78 mL/min (>60); Globulin 3.9 g/dL (2.2-4.2); Glucose 93 mg/dL (74-106); Protein, Total 7.6 g/dL (6.4-8.2); Sodium Level 135 mmol/L (136-145)
== END | disposition home or self-care (01) ==
LOC: LAB 11:46
PROVIDERS: PCP Family Medicine; Referring Provider Internal Medicine Cardiovascular Disease; Visit Provider Internal Medicine Cardiovascular Disease
DX: R53.83 Other fatigue (principal); R11.0 Nausea
CPT/HCPCS: 36415; 80053; 84443; 85027

== ENCOUNTER → 2024-10-08 | Outpatient (CLI) | payer OTHER, SELFPAY ==
--- NOTE | 2024-10-12 08:49 | STRESSREP ---
Stress Test Report Date: 10/08/2024 Procedure: Exercise tolerance test/imaging study Indications: Abnormal ECG Consent: Per the patient Procedure: The patient exercised on a Paulino protocol for 4 minutes and 1 second achieving a peak heart rate of 150 bpm (86% predicted maximal heart rate) with a peak blood pressure 158/90 mmHg and a peak MET capacity of 7.0 METs. The baseline ECG demonstrated sinus rhythm. The peak exercise ECG demonstrated sinus tachycardia with no ischemic changes. Occasional PVCs at rest as well as during exercise. The functional capacity was considered suboptimal. There was no complaint of chest discomfort during exercise or recovery. The examination was discontinued secondary to dyspnea and target heart rate being achieved. The patient was injected with 12.0 mCi of technetium 99m Cardiolite and subsequently rest SPECT Cardiolite nuclear imaging was obtained in the horizontal long, vertical long, and short axis views. Post-exercise, the patient was injected with 36.0 mCi of technetium 99m Cardiolite and subsequently stress SPECT Cardiolite nuclear imaging was obtained in the horizontal long, vertical long, and short axis views. A gated Cardiolite study at peak stress was obtained. Rest and stress SPECT Cardiolite nuclear imaging status post realignment, normalization, and attenuation correction, demonstrates the appearance of relative uniform tracer uptake and myocardial perfusion appearing within normal limits. There is end systolic thickening and brightening. The gated Cardiolite study demonstrates myocardial thickening and inward wall motion. The reported LVEF is 51%. Impression: 1. Technically adequate (percent predicted maximal heart rate greater than 85%) exercise tolerance test 2. Peak exercise ECG with no ischemic changes 3. Occasional PVCs pretest and during exercise 4. Rest and stress SPECT Cardiolite nuclear imaging demonstrate relative uniform tracer uptake and myocardial perfusion appearing within normal limits. 5. The gated Cardiolite study reports an LVEF of 51%. This note was generated with [employer] software. It may contain incorrect words, spelling, and punctuation that were not noted in checking the note before signing.
== END | disposition home or self-care (01) ==
LOC: CVS 06:15
PROVIDERS: PCP Family Medicine; Referring Provider Internal Medicine Cardiovascular Disease; Visit Provider Internal Medicine Cardiovascular Disease
DX: R94.31 Abnormal electrocardiogram [ECG] [EKG] (principal)
CPT/HCPCS: 78452; 93017; A9500; A4216

== ENCOUNTER 2024-10-13 08:04 | Day surgery (SDC) | payer OTHER, SELFPAY ==
--- NOTE | 2024-09-23 13:44 | PAT.ANE_ITS ---
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 When Was Last Pacemaker Check QUESTION #4 FULL TEXT: You/Your Family Experience fever (hyperthermia) with Anesthesia Last Oral Intake Last Oral intake: Last Oral Intake NPO since Meds taken in AM with sips of water? Meds patient instructed to take am of surgery PONV PONV - medical billing coder: PONV - medical billing coder Female Yes 09/23/24 09:36 HX of Motion Sickness No 09/23/24 09:36 HX of N/V After Surgery No 09/23/24 09:36 Non-Smoker Yes 09/23/24 09:36 Duration of Surgery greater No 09/23/24 09:36 than 60 minutes Number of Risk Factors 2 09/23/24 09:36 PONV Score Moderate Risk 09/23/24 09:36 Height & Weight Height & Weight: Anesthesia: Height & Weight Height 5 ft 6 in 08/17/24 13:22 Respiratory Assessment Respiratory Assessment - medical billing coder: Respiratory Tract Infection Hx - medical billing coder Hx Respiratory Tract Infection No 09/23/24 09:36 STOP Sleep Apnea STOP Sleep Apnea - medical billing coder: STOP Sleep Apnea - medical billing coder Hx Hypertension No 09/23/24 09:36 Hx Sleep Apnea Yes 09/23/24 09:36 CPAP No 09/23/24 09:36 BIPAP No 09/23/24 09:36 Do you snore loudly (louder than talking or can be heard Do you often feel tired/ fatigued/ sleepy during daytime? Has anyone observed you stop breathing during sleep? STOP Results Positive 09/23/24 09:36 QUESTION #5 FULL TEXT : Do you snore loudly (louder than talking or can be heard through closed doors)? 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 Specify any problems Hx of Preganancy in last 3 N/A 09/23/24 09:36 Months Nurse Filling Out Transfusion [facility] 09/23/24 09:36 & Questions: Date: 09/23/24 09/23/24 09:36 Time: 09:37 09/23/24 09:36 Patient unable to answer at this time (ie. confused, unrespo /Reproduction History /Reproductive History - medical billing coder: /Reproductive Hx- medical billing coder Hx Now No 09/23/24 09:36 Gestational Age (in weeks): EDC: Hx Hx Para Hx Section SAB No 09/23/24 09:36 [facility] Medical History Moderate episode of recurrent major depressive disorder Dilated cardiomyopathy Mild intermittent asthma without complication Gastric reflux Wears contact lenses Wears glasses Fatty liver History of echocardiogram Cardiology follow-up encounter Scoliosis Hyperlipemia Sleep apnea Asthma Seasonal allergies Nonrheumatic mitral (valve) prolapse Family history of hypertension Lumbar herniated disc Chronic back pain Depression Anxiety Celiac disease Cardiomyopathy in disease classified elsewhere CHF (congestive heart failure) Mixed hyperlipidemia Status post left L5-S1 microdiscectomy Left L5-S1 herniated disc Mitral valve prolapse Peripartum cardiomyopathy Home Medications ?Medication ?Instructions ?Recorded ?Last Taken ?Type omega-3 fatty acids-fish oil 684 2 ea PO DAILY 02/14/14 09/21/24 History mg-1,200 mg capsule,delayed release turmeric 450 mg-turmeric root 2,000 mg PO DAILY 10/11/16 09/21/24 History extract 50 mg capsule chromium picolinate 200 mcg tablet 200 mcg PO DAILY 01/16/22 Unknown History coenzyme Q10 75 mg capsule (Ultra 75 mg PO DAILY 01/16/22 Unknown History CoQ10) fexofenadine 180 mg tablet 180 mg PO DAILY 01/16/22 Unknown History (Marcy Allergy) sour zhong extract 1,000 mg 2,400 mg PO DAILY 01/16/22 Unknown History capsule (Tart Zhong Extract) digestive enzymes 1 cap PO DAILY 02/26/22 Unknown History albuterol sulfate 2.5 mg/3 mL 2.5 mg inhalation Q4-6H PRN 06/11/24 Unknown History (0.083 %) solution for nebulization bronchospasm ascorbic acid 125 mg-collagen, 1 cap PO DAILY 06/11/24 Unknown History hydrolyzed 740 mg capsule (Collagen Plus Vitamin C) black cohosh 200 mg capsule 200 mg PO QDAY 06/11/24 Unknown History diphenhydramine HCl 25 mg tablet 25 mg PO QHS allergy symptoms 06/11/24 Unknown History (Benadryl Allergy) magnesium oxide 800 mg PO QDAY 06/11/24 Unknown History multivitamin 1 tab PO QAM 06/11/24 Unknown History progesterone micronized 4 % 1 appful vaginal Q OTHER DAY 06/11/24 Unknown His tory vaginal gel pantoprazole 40 mg tablet,delayed 40 mg PO DAILY 07/07/24 Unknown History release bupropion HCl 150 mg 24 hr tablet, 150 mg PO TID 09/23/24 Unknown History extended release ginkgo biloba 120 mg tablet 240 mg PO DAILY 09/23/24 Unknown History melatonin 10 mg capsule 10 mg PO QHS 09/23/24 Unknown History quercetin 500 mg capsule 1,000 mg PO DAILY 09/23/24 Unknown History spironolactone 25 mg tablet 25 mg PO DAILY 09/23/24 Unknown History venlafaxine 150 mg 300 mg PO DAILY 09/23/24 Unknown History capsule,extended release 24 hr vit B comp-E 30 unit-folic acid 2 tab PO DAILY 09/23/24 Unknown History 400 [id number]-[id number] 80 mg tablet (Menopause Support) vitamin D3 1,250 mcg (50,000 1 cap PO DAILY 09/23/24 Unknown History unit)-vitamin K2 200 mcg capsule (Decara K) Allergy/AdvReac Type Severity Reaction Status Date / Time grass pollen Allergy Intermediate Hives Verified 09/23/24 09:19 mold Allergy Intermediate Hives Verified 09/23/24 09:19 oxycodone (From Percocet) Allergy Intermediate Hives Verified 09/23/24 09:19 adhesive tape Allergy Hives Verified 09/23/24 09:19 latex Allergy Itching Verified 09/23/24 09:19 Family History Mother Hypertension CHF (congestive heart failure) Asthma Arthritis Heart disease Hyperlipidemia Thyroid disorder Grandfather Alcoholism Colon cancer In his late 40's. Cancer Father Depression Cancer Skin cancer Colon polyps Grandmother Breast cancer Bowel disease Diabetes Myocardial infarction Heart disease CVA (cerebral vascular accident) Surgical History History of tubal ligation H/O section History of microdiscectomy (~12/10/16) Social History household members: spouse and children current occupation: [employer] Smoking Status: Never smoker alcohol intake: current alcohol intake frequency: a few times a week substance use type: does not use diet: gluten free and other what type of physical activity do you participate in: none seatbelt use: always do you feel safe at home: Yes additional social history: - Ray Audit: Pertinent Findings Pertinent Findings EKG Perinent findings: 12/04/2016 normal sinus rhythm 75 incomplete right bundle branch block Echo (EF%) pertinent findings: 07/01/2024 normal size ejection fraction 50% stage I diastolic dysfunction Consult pertinent findings: Cardiology 10/21/2017 peripartum cardiomyopathy doing well no evidence of recurrence mitral valve prolapse no significant change Recommendation Anesthesia Recommendation Anesthesia recommendation: OPTIMIZED for anesthesia
[2024-10-13] VITALS (8 sets, daily range): BP systolic 95–112; BP diastolic 72–82; PULSE 92–107; RESP 12–16; TEMP 36.4–36.7; O2SAT 92–99; BMI 28.8
--- NOTE | 2024-10-13 | EMB_PTH ---
PATIENT: SATISH SUAZO LOC: [facility] U#:[id number] AGE/SX: 49/F ROOM: RE10/13/[address]: Dr. Tania West MD : 1975 BED: DIS: 10/13/2024 SPEC #: [id number] RECD: 10/13/24 12:53 STATUS: SHANTE REVerna #: [id number] JOE: 10/13/24 00:[address]: Tania West DEPT: SURGICAL PATHOLOGY RECD BY: Brian Escobar ENTERED: 10/13/24 12:53 SP TYPE: ENDOM BX/C OTHR DR: Dr. Tuan Antonio MD Tissues: Endometrium, NOS Procedures: Surgery Specimen Level IV HEADER OPERATION: Hysteroscopy, D&C, polypectomy PRE-OP DIAGNOSIS: Abnormal uterine bleeding TISSUE SUBMITTED: Endometrial curettings and cervical polyp MICROSCOPIC DIAGNOSIS Endometrial curettings: Secretory endometrium. Cervical polyp, polypectomy: Inflamed benign endocervical polyp. . 10/14/2024 MICROSCOPIC DESCRIPTION Slides are reviewed. GROSS DESCRIPTION Received in fixative is one container labeled with the patient's name and designated Endometrial curettings and cervical polyp. The specimen consists of multiple irregular fragments of hemorrhagic soft tissue that in aggregate measure 3 x 2.5 x 0.3 cm. Also present in the container is a salazar-pink polyp measuring 2.5 x 1 x 0.5cm. The specimen is totally submitted in two cassettes as follows: 1- hemorrhagic pieces of tissue, 2-polyp. . 10/13/2024 TC:5 CPT:[id number]
--- NOTE | 2024-10-13 08:40 | PCM.PRE.AN2 ---
ASA Classification* ASA Classification ASA Classification: 2 Assessment & Plan Anesthesia* Anesthesia Assessment Anesthesia Assessment: Discussed sedation and/or anesthesia options, risks, benefits, and alternatives with patient/parents/legal guardian/POA. Questions invited. The patient/parents/legal guardian/POA seems to understand and agrees to proceed with anesthesia plan. Reviewed the physical assessment, medical history, allergy history and patient home medications list prior to surgery/procedure/anesthetic and documented any changes. Performed airway and anesthesia risk assessments. Anesthesia Type Anesthesia Type: MAC History Source History Obtained from:: Patient and Chart Anesthesia Focused Assessment* Temperature: 97.5 F Pulse Rate: 107 Blood Pressure: 112/82 Respiratory Rate: 16 Pulse Ox: 99 Oxygen Delivery Method: Room Air Airway Assessment Mouth opens: >3 cm Mallampati Score: IV Teeth Condition: Intact Neck Range of motion (ROM): Full ROM Focused Labs Anesthesia Preop lab: CBC WBC 7.0 K/mm3 (4.4-11.0) 09/29/24 12:00 09/29/24 RBC 4.69 M/mm3 (4.2-5.4) 09/29/24 12:00 09/29/24 Hgb 13.0 g/dL (12.0-15.0) 09/29/24 12:00 09/29/24 Hct 40.9 % (37-47) 09/29/24 12:00 09/29/24 Plt Count 449 K/mm3 (150-450) 09/29/24 12:00 09/29/24 CHEMISTRY Potassium 4.0 mmol/L (3.5-5.1) 09/29/24 12:00 09/29/24 Sodium 135 mmol/L (136-145) L 09/29/24 12:00 09/29/24 BUN 14 mg/dL (7-18) 09/29/24 12:00 09/29/24 Creatinine 0.98 mg/dL (0.55-1.02) 09/29/24 12:00 09/29/24 Glucose 93 mg/dL (74-106) 09/29/24 12:00 09/29/24 TSH 1.190 uIU/mL (0.358-3.740) 09/29/24 12:00 09/29/24 COAG Pre-Assessment Diagnosis/Proposed Procedure Planned Operative Procedure(s): D&C POLYPECTMOY Anesthesia History Anesthesia History - food and drug research scientist: Anesthesia History - food and drug research scientist Hx Hospitalization No 09/23/24 09:36 Any Problems With Anesthesia No 09/23/24 09:36 Cholinesterase deficiency No 09/23/24 09:36 You/Your Family Experience No 09/23/24 09:36 fever (hyperthermia) with Relationship Recent Exposure to Contagious No 10/13/24 08:23 Disease Does patient have nerve No 09/23/24 09:36 stimulator Patient instructed to have device shut off --Does patient have Pacemaker No 10/13/24 08:23 or ICD? When Was Last Pacemaker Check QUESTION #4 FULL TEXT: You/Your Family Experience fever (hyperthermia) with Anesthesia Last Oral Intake Last Oral intake: Last Oral Intake NPO since 06:45 10/13/24 08:23 Meds taken in AM with sips of Yes 10/13/24 08:23 water? Meds patient instructed to see mar 10/13/24 08:23 take am of surgery cough suppresant PONV PONV - food and drug research scientist: PONV - food and drug research scientist Female Yes 09/23/24 09:36 HX of Motion Sickness No 09/23/24 09:36 HX of N/V After Surgery No 09/23/24 09:36 Non-Smoker Yes 09/23/24 09:36 Duration of Surgery greater No 09/23/24 09:36 than 60 minutes Number of Risk Factors 2 09/23/24 09:36 PONV Score Moderate Risk 09/23/24 09:36 Height & Weight Height & Weight: Anesthesia: Height & Weight Height 5 ft 6 in 10/13/24 08:23 Weight: 81.193 kg 10/13/24 08:23 Body Mass Index (BMI) 28.8 10/13/24 08:23 Respiratory Assessment Respiratory Assessment - food and drug research scientist: Respiratory Tract Infection Hx - food and drug research scientist Hx Respiratory Tract Infection No 09/23/24 09:36 STOP Sleep Apnea STOP Sleep Apnea - food and drug research scientist: STOP Sleep Apnea - food and drug research scientist Hx Hypertension No 09/23/24 09:36 Hx Sleep Apnea Yes 09/23/24 09:36 CPAP No 09/24/24 09:30 BIPAP No 09/23/24 09:36 Do you snore loudly (louder than talking or can be heard Do you often feel tired/ fatigued/ sleepy during daytime? Has anyone observed you stop breathing during sleep? STOP Results Positive 09/23/24 09:36 QUESTION #5 FULL TEXT : Do you snore loudly (louder than talking or can be heard through closed doors)? Tobacco Use History Tobacco Use History - food and drug research scientist: Tobacco Use History - food and drug research scientist Tobacco Use Smoking Status Never smoker 09/23/24 09:36 Hx Tobacco Use No 09/23/24 09:36 Years Smoking Packs Smoked per Day Smoking Cessation Date was within the last 15 years Hx Smoking Cessation Date Hx Smoking Cessation Counseling Hematologic Medial History Hematologic Hx - food and drug research scientist: Hematologic Medical Hx - tour conductor Hx of Blood Transfusion No 09/23/24 09:36 Hx of Transfusion in last 3 No 09/23/24 09:36 Months Date of Last Transfusion (if within last 3 months) Ever experience any problems No 09/23/24 09:36 with transfusion(s)? Specify any problems Hx of Preganancy in last 3 N/A 09/23/24 09:36 Months Nurse Filling Out Transfusion NBUCHER 09/23/24 09:36 & Questions: Date: 09/23/24 09/23/24 09:36 Time: 09:37 09/23/24 09:36 Patient unable to answer at this time (ie. confused, unrespo /Reproduction History /Reproductive History - food and drug research scientist: /Reproductive Hx- food and drug research scientist Hx Now No 09/23/24 09:36 Gestational Age (in weeks): EDC: Hx Hx Para Hx Section SAB No 10/06/24 11:52 PFSH Medical History Moderate episode of recurrent major depressive disorder Dilated cardiomyopathy Mild intermittent asthma without complication Gastric reflux Wears contact lenses Wears glasses Fatty liver History of echocardiogram Cardiology follow-up encounter Scoliosis Hyperlipemia Sleep apnea Asthma Seasonal allergies Nonrheumatic mitral (valve) prolapse Family history of hypertension Lumbar herniated disc Chronic back pain Depression Anxiety Celiac disease Cardiomyopathy in disease classified elsewhere CHF (congestive heart failure) Mixed hyperlipidemia Status post left L5-S1 microdiscectomy Left L5-S1 herniated disc Mitral valve prolapse Peripartum cardiomyopathy Home Medications ?Medication ?Instructions ?Recorded ?Last Taken ?Type omega-3 fatty acids-fish oil 684 2 ea PO DAILY 02/14/14 09/21/24 History mg-1,200 mg capsule,delayed release turmeric 450 mg-turmeric root 2,000 mg PO DAILY 10/11/16 09/21/24 History extract 50 mg capsule chromium picolinate 200 mcg tablet 200 mcg PO DAILY 01/16/22 09/23/24 History coenzyme Q10 75 mg capsule (Ultra 75 mg PO DAILY 01/16/22 09/23/24 History CoQ10) fexofenadine 180 mg tablet 180 mg PO DAILY 01/16/22 10/13/24 History (Marcy Allergy) sour barker extract 1,000 mg 2,400 mg PO DAILY 01/16/22 09/21/24 History capsule (Tart Barker Extract) digestive enzymes 1 cap PO DAILY 02/26/22 Unknown History albuterol sulfate 2.5 mg/3 mL 2.5 mg inhalation Q4-6H PRN 06/11/24 Unknown History (0.083 %) solution for nebulization bronchospasm ascorbic acid 125 mg-collagen, 1 cap PO DAILY 06/11/24 Unknown History hydrolyzed 740 mg capsule (Collagen Plus Vitamin C) black cohosh 200 mg capsule 200 mg PO QDAY 06/11/24 09/23/24 History diphenhydramine HCl 25 mg tablet 25 mg PO QHS allergy symptoms 06/11/24 09/21/24 History (Benadryl Allergy) magnesium oxide 800 mg PO QDAY 06/11/24 09/22/24 History multivitamin 1 tab PO QAM 06/11/24 Unknown History progesterone micronized 4 % 1 appful vaginal Q OTHER DAY 06/11/24 09/23/24 History vaginal gel pantoprazole 40 mg tablet,delayed 40 mg PO DAILY 07/07/24 09/23/24 History release ginkgo biloba 120 mg tablet 240 mg PO DAILY 09/23/24 09/23/24 History melatonin 10 mg capsule 10 mg PO QHS 09/23/24 09/22/24 History quercetin 500 mg capsule 1,000 mg PO DAILY 09/23/24 09/23/24 History spironolactone 25 mg tablet 25 mg PO DAILY 09/23/24 09/23/24 History venlafaxine 150 mg 300 mg PO DAILY 09/23/24 09/23/24 History capsule,extended release 24 hr vit B comp-E 30 unit-folic acid 2 tab PO DAILY 09/23/24 09/22/24 History 400 tss--[id number] 80 mg tablet (Menopause Support) vitamin D3 1,250 mcg (50,000 1 cap PO DAILY 09/23/24 09/23/24 History unit)-vitamin K2 200 mcg capsule (Decara K) bupropion HCl 450 mg 24 hr tablet, 450 mg PO QDAY 09/29/24 Unknown History extended release valsartan 40 mg tablet 40 mg PO QDAY #90 tabs 09/29/24 Unknown Rx Allergy/AdvReac Type Severity Reaction Status Date / Time grass pollen Allergy Intermediate Hives Verified 10/13/24 08:20 mold Allergy Intermediate Hives Verified 10/13/24 08:20 oxycodone (From Percocet) Allergy Intermediate Hives Verified 10/13/24 08:20 adhesive tape Allergy Hives Verified 10/13/24 08:20 latex Allergy Itching Verified 10/13/24 08:20 Family History Mother Hypertension CHF (congestive heart failure) Asthma Arthritis Heart disease Hyperlipidemia Thyroid disorder Grandfather Alcoholism Colon cancer In his late 40's. Cancer Father Depression Cancer Skin cancer Colon polyps Grandmother Breast cancer Bowel disease Diabetes Myocardial infarction Heart disease CVA (cerebral vascular accident) Surgical History History of tubal ligation H/O section History of microdiscectomy (~12/10/16) Social History household members: spouse and children current occupation: [employer] Smoking Status: Never smoker alcohol intake: current alcohol intake frequency: a few times a week substance use type: does not use diet: gluten free and other what type of physical activity do you participate in: none seatbelt use: always do you feel safe at home: Yes additional social history: - Ray Review of Systems (Anesthesia) ROS Narrative System reviewed and no additional complaints, except as documented.
--- NOTE | 2024-10-13 09:03 | PCM.HP.BLA ---
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 Required: No Is patient in pain?: No Allergies grass pollen Allergy (Intermediate, Verified 09/29/24 10:53) Hivesmold Allergy (Intermediate, Verified 09/29/24 10:53) Hivesoxycodone (From Percocet) Allergy (Intermediate, Verified 09/29/24 10:53) Hivesadhesive tape Allergy (Verified 09/29/24 10:53) Hiveslatex Allergy (Verified 09/29/24 10:53) Itching Medications ?Medication ?Instructions ?Recorded ?Confirmed ?Type omega-3 fatty acids-fish oil 684 2 ea PO DAILY 02/14/14 10/06/24 History mg-1,200 mg capsule,delayed release turmeric 450 mg-turmeric root 2,000 mg PO DAILY 10/11/16 10/06/24 History extract 50 mg capsule chromium picolinate 200 mcg tablet 200 mcg PO DAILY 01/16/22 10/06/24 History coenzyme Q10 75 mg capsule (Ultra 75 mg PO DAILY 01/16/22 10/06/24 History CoQ10) fexofenadine 180 mg tablet 180 mg PO DAILY 01/16/22 10/06/24 History (Marcy Allergy) sour barker extract 1,000 mg 2,400 mg PO DAILY 01/16/22 10/06/24 History capsule (Tart Barker Extract) digestive enzymes 1 cap PO DAILY 02/26/22 10/06/24 History albuterol sulfate 2.5 mg/3 mL 2.5 mg inhalation Q4-6H PRN 06/11/24 10/06/24 History (0.083 %) solution for nebulization bronchospasm ascorbic acid 125 mg-collagen, 1 cap PO DAILY 06/11/24 10/06/24 History hydrolyzed 740 mg capsule (Collagen Plus Vitamin C) black cohosh 200 mg capsule 200 mg PO QDAY 06/11/24 10/06/24 History diphenhydramine HCl 25 mg tablet 25 mg PO QHS allergy symptoms 06/11/24 10/06/24 History (Benadryl Allergy) magnesium oxide 800 mg PO QDAY 06/11/24 10/06/24 History multivitamin 1 tab PO QAM 06/11/24 10/06/24 History progesterone micronized 4 % 1 appful vaginal Q OTHER DAY 06/11/24 10/06/24 History vaginal gel pantoprazole 40 mg tablet,delayed 40 mg PO DAILY 07/07/24 10/06/24 History release ginkgo biloba 120 mg tablet 240 mg PO DAILY 09/23/24 10/06/24 History melatonin 10 mg capsule 10 mg PO QHS 09/23/24 10/06/24 History quercetin 500 mg capsule 1,000 mg PO DAILY 09/23/24 10/06/24 History spironolactone 25 mg tablet 25 mg PO DAILY 09/23/24 10/06/24 History venlafaxine 150 mg 300 mg PO DAILY 09/23/24 10/06/24 History capsule,extended release 24 hr vit B comp-E 30 unit-folic acid 2 tab PO DAILY 09/23/24 10/06/24 History 400 ehk--qvxuptb 80 mg tablet (Menopause Support) vitamin D3 1,250 mcg (50,000 1 cap PO DAILY 09/23/24 10/06/24 History unit)-vitamin K2 200 mcg capsule (Decara K) bupropion HCl 450 mg 24 hr tablet, 450 mg PO QDAY 09/29/24 10/06/24 History extended release valsartan 40 mg tablet 40 mg PO QDAY #90 tabs 09/29/24 10/06/24 Rx Is last menstrual period known: No Post menopausal: Yes Patient : No : No PFSH Medical History Moderate episode of recurrent major depressive disorder Dilated cardiomyopathy Mild intermittent asthma without complication Gastric reflux Wears contact lenses Wears glasses Fatty liver History of echocardiogram Cardiology follow-up encounter Scoliosis Hyperlipemia Sleep apnea Asthma Seasonal allergies Nonrheumatic mitral (valve) prolapse Family history of hypertension Lumbar herniated disc Chronic back pain Depression Anxiety Celiac disease Cardiomyopathy in disease classified elsewhere CHF (congestive heart failure) Mixed hyperlipidemia Status post left L5-S1 microdiscectomy Left L5-S1 herniated disc Mitral valve prolapse Peripartum cardiomyopathy Surgical History History of tubal ligation H/O section History of microdiscectomy (~12/10/16) Family History Mother Hypertension CHF (congestive heart failure) Asthma Arthritis Heart disease Hyperlipidemia Thyroid disorderGrandfather Alcoholism Colon cancer In his late 40's. CancerFather Depression Cancer Skin cancer Colon polypsGrandmother Breast cancer Bowel disease Diabetes Myocardial infarction Heart disease CVA (cerebral vascular accident) Social History household members: spouse and children current occupation: [employer] Smoking Status: Never smoker alcohol intake: current alcohol intake frequency: a few times a week substance use type: does not use diet: gluten free and other what type of physical activity do you participate in: none seatbelt use: always do you feel safe at home: Yes additional social history: - Ray HPI D&C Polypectomy possible [facility] Details: SATISH SUAZO is a 49 year old who presents for cervical polyp and fibroid seen on ultrasound. she had an exam by tarik woodruff in april that showed a cervicla polyp and has been taking progesterone OTC without improvement in cycles. she has a 3 cm fibroid on US. she also has some anteiror vaginal wall pain with intercourse,. History 1 Elective abortions Hx Para 1 Spontaneous abortions Hx # Term Pregnancies Ectopic pregnancies Hx # Pregnancies Multiple births # of living children 1 Past Pregnancies Del. Date Name GA/Weeks Outcome Route Bth Weight Gen Labor Lgth Anesthesia Del [facility] Provider FOB Unknown Obdulio 2010 ROS Const Constitutional: Denies fatigue, fever(s), headache(s), increased appetite, poor appetite, weight gain or weight loss GI GI: Reports as per HPI; Denies abdominal pain, constipation, nausea or vomiting : Reports as per HPI; Denies difficulty voiding, dysuria, hematuria, pelvic pain, urinary frequency, urinary incontinence, urinary hesitancy, urinary urgency, vaginal discharge, vaginal dryness, vaginal odor, vaginal pruritus or other Exam Const General: cooperative, healthy appearing, comfortable, no acute distress and well developed Orientation: alert HENMT Head: normal to inspection and normocephalic Ears: hearing grossly normal bilaterally and external ears normal Nose: external nose normal and nares normal Face and sinus: normal facial exam Neck Neck: normal visual inspection, no lymphadenopathy and trachea midline Thyroid: thyroid normal Resp Effort & Inspection: normal respiratory effort Musc Other: gross motor intact no deficits, full bilateral strength Skin General: no rashes or lesions noted Neuro Motor: muscle tone normal throughout Coding Level of Care Code No Charge Diagnoses Abnormal uterine bleeding N93.9 Assessment and Plan Assessment and Plan (1) Abnormal uterine bleeding: Status: Acute Comment: suspect polyp or fibroid as cause. plan d and c hysterosocpy polypectomy possible symphion. Plan After discussing the patient's diagnosis and treatment plan options, patient wishes to proceed with surgical management. I have discussed with the patient the risks, benefits, and alternatives of the procedure which include but are not limited to risks of anesthesia, bleeding, infection, possible damage to bowel, bladder, or surrounding vasculature which could lead to additional surgery to evaluate any complications. Patient agrees to procedure and wishes to proceed. ACOG/uptodate references given for additional information regarding procedure. UPDATE- I have seen the patient and performed any clinically relevant updates to the history and physical exam. Tania West MD
[2024-10-13] MEDS: Lidocaine 1% (30 ml sdv) 30 ML Vial (09:27)
--- NOTE | 2024-10-13 09:32 | OP.PCM_ITS ---
Problems Associated Problem List Diagnoses (1) Abnormal uterine bleeding: Multi Select Codes Urinary/Genital Urinary/Genital CPT Codes: 25288 Hysteroscopy,EMC, Polypectomy Operative Report (Standard) Operative Information Date of Procedure: 10/13/24 Pre-Operative Diagnosis: see problem list comments Post-Operative Diagnosis: same Surgery/Procedure Performed: dilation and curettage hysteroscopy polypectomy tile professional: No Type of Anesthesia: IV Sedation and Local RN Documented Start/Stop Times: Operation Date: 10/13/24 09:55 Case Time Into Pre-Op 10/13/24 08:07 Out of Pre-Op 10/13/24 09:02 Anesthesia Start 10/13/24 09:07 Into Room 10/13/24 09:07 Procedure Start 10/13/24 09:26 Procedure Start Time: : Procedure Stop Time: :30 Select all DRAINS/GRAFTS/IMPLANTS that apply: None Estimated Blood Loss: 25 Specimen collected: Yes Description of specimen(s) removed: curretings and polyp Description of surgery: Patient was prepped and draped in a normal sterile fashion under MAC anesthesia. A weighted speculum was placed in the vagina and the anterior lip of the cervix was grasped with a single-tooth tenaculum. olyp at cervix grasped with polyp forceps twisted and removed without complication. A paracervical block was placed with 1% lidocaine. Cervix was progressively dilated to allow passage of a 7 mm hysteroscope. The lining was fully visualized and noted to have a thickened appearance . Uterine sounded to 11 cm. Curettage was performed and tissue removed , sent to pathology. All instruments were removed from the vagina and excellent hemostasis was noted. Patient was awoken and taken to recovery in stable condition. Surgical Findings: Large endocervical polyp thickened endometrial lining Complications Complications: No
--- NOTE | 2024-10-13 09:39 | DCINST_ITS ---
Discharge Instructions Procedure D&C Diet Discharge Diet: No restrictions Activity Discharge Activity: Return to Normal Activity, May Shower and May Take a Tub Bath (after 1 week) May resume sexual activity in: 1-2 weeks Weight Bearing Status: Weight bearing as tolerated Lifting Restrictions: none Dressing / Incision Call your doctor if you observe: Fever of 101 or Higher, Using more than 1 pad per hour, Shortness of breath and Uncontrolled pain Follow Up Care Please Follow Up With: Tania West MD When: Call [phone] to schedule appointment. Test Results: Test results from this visit will be discussed in further detail at your follow- up appointment, if applicable. Discharge Plan Admission Attending Provider: Tania West Primary Care Provider: Tuan Antonio Instructions Print Language: Japanese Discharge Orders/Prescriptions Prescriptions: No Action fexofenadine [Marcy Allergy] 180 mg tablet 180 mg PO DAILY chromium picolinate 200 mcg tablet 200 mcg PO DAILY Tart Barker Extract 1,000 mg capsule 2,400 mg PO DAILY Ultra CoQ10 75 mg capsule 75 mg PO DAILY digestive enzymes Capsule 1 cap PO DAILY Rx Instructions: administer with food; swallow whole; do not crush/chew/dissolve/break/cut albuterol sulfate 2.5 mg /3 mL (0.083 %) solution for nebulization 2.5 mg inhalation Q4-6H PRN (Reason: bronchospasm) Collagen Plus Vitamin C 125-740 mg capsule 1 cap PO DAILY multivitamin Tablet 1 tab PO QAM progesterone micronized 4 % gel 1 appful vaginal Q OTHER DAY diphenhydramine HCl [Benadryl Allergy] 25 mg tablet 25 mg PO QHS magnesium oxide 400 mg magnesium capsule 800 mg PO QDAY black cohosh 200 mg capsule 200 mg PO QDAY bupropion HCl 450 mg tablet extended release 24 hr 450 mg PO QDAY valsartan 40 mg tablet 40 mg PO QDAY Qty: 90 3RF omega-3 fatty acids-fish oil 1 EACH capsule,delayed release(DR/EC) 2 ea PO DAILY turmeric-turmeric root extract 500 MG capsule 2,000 mg PO DAILY pantoprazole 40 mg tablet,delayed release (DR/EC) 40 mg PO DAILY ginkgo biloba 120 mg tablet 240 mg PO DAILY Rx Instructions: give with meal/snack Menopause Support 30-400-80 unit-mcg-mg tablet 2 tab PO DAILY quercetin 500 mg capsule 1,000 mg PO DAILY venlafaxine 150 mg capsule,extended release 24hr 300 mg PO DAILY spironolactone 25 mg tablet 25 mg PO DAILY melatonin 10 mg capsule 10 mg PO QHS Decara K 1,250-200 mcg capsule 1 cap PO DAILY Other Ambulatory Orders: CBC-Complete Blood Cnt No Diff (Routine) Timeframe: [id number] Facility: [facility] - Location: Laboratory Ordered By: Dr. Tania West Type & Screen - PAT ONLY (Routine) Facility: [facility] - Location: Laboratory Ordered By: Dr. Tania West Referrals / Follow Up: Tuan Antonio MD [Primary Care Provider] - Disposition Disposition (needs filled in before D/C Order can be placed): Home, Self Care
--- NOTE | 2024-10-13 09:42 | PCM.POST.ANE ---
Anesthesia: Postop Eval I Current Vital Signs Temperature: 97.9 F Pulse Rate: 96 Blood Pressure: 103/76 Respiratory Rate: 12 Pulse Ox: 96 Oxygen Delivery Method: Simple Mask Assessment Airway patent: Yes Spontaneous unlabored respirations: Yes Mental status: Awake nausea: No Vomiting: No Anesthesia Complication: No Fluid Hydration Crystalloid volume administer (ml): 500 Total IV fluid infused: 500 Progress Note Anesthesia document: Postop Eval 1 completed: Yes
--- NOTE | 2024-10-13 10:38 | POSTOPAN2_ITS ---
Anesthesia Postop Eval I Sum Postop Eval Completion status Anesthesia document: Postop Eval 1 completed: Yes Anesthesia Postop Eval I Summary Anesthesia Postop Eval I Summary: Anesthesia Postop Eval I: Assessment Summary Airway patent Yes 10/13/24 09:42 MANAGER HIV.HBARR Spontaneous unlabored Yes 10/13/24 09:42 MANAGER HIV.HBARR respirations Mental status Awake 10/13/24 09:42 MANAGER HIV.HBARR nausea No 10/13/24 09:42 MANAGER HIV.HBARR Vomiting No 10/13/24 09:42 MANAGER HIV.HBARR Anesthesia Postop Eval I: Fluid Summary Crystalloid volume administer 500 10/13/24 09:42 MANAGER HIV.HBARR (ml) Colloids volume administered ( ml) Blood Product volume administered (ml) Total IV fluid infused 500 10/13/24 09:42 MANAGER HIV.HBARR Anesthesia Postop Eval I: Summary Notes Anesthesia Complication No 10/13/24 09:42 MANAGER HIV.HBARR Anesthesia Complication Comment: Post-operative progress note Anesthesia: Postop Eval II Evaluation Mental status: Awake and Calm Pain Level: 1 nausea: No Vomiting: No
--- NOTE | 2024-10-13 10:38 | PCM.POSTANE2 ---
Anesthesia Postop Eval I Sum Postop Eval Completion status Anesthesia document: Postop Eval 1 completed: Yes Anesthesia Postop Eval I Summary Anesthesia Postop Eval I Summary: Anesthesia Postop Eval I: Assessment Summary Airway patent Yes 10/13/24 09:42 SENIOR CLINICAL RESEARCH ASSOCIATE.HBARR Spontaneous unlabored Yes 10/13/24 09:42 SENIOR CLINICAL RESEARCH ASSOCIATE.HBARR respirations Mental status Awake 10/13/24 09:42 SENIOR CLINICAL RESEARCH ASSOCIATE.HBARR nausea No 10/13/24 09:42 SENIOR CLINICAL RESEARCH ASSOCIATE.HBARR Vomiting No 10/13/24 09:42 SENIOR CLINICAL RESEARCH ASSOCIATE.HBARR Anesthesia Postop Eval I: Fluid Summary Crystalloid volume administer 500 10/13/24 09:42 SENIOR CLINICAL RESEARCH ASSOCIATE.HBARR (ml) Colloids volume administered ( ml) Blood Product volume administered (ml) Total IV fluid infused 500 10/13/24 09:42 SENIOR CLINICAL RESEARCH ASSOCIATE.HBARR Anesthesia Postop Eval I: Summary Notes Anesthesia Complication No 10/13/24 09:42 SENIOR CLINICAL RESEARCH ASSOCIATE.HBARR Anesthesia Complication Comment: Post-operative progress note Anesthesia: Postop Eval II Evaluation Mental status: Awake and Calm Pain Level: 1 nausea: No Vomiting: No
== END 2024-10-13 11:03 | disposition home or self-care (01) ==
LOC: SDC 08:04 → AC 08:06
PROVIDERS: PCP Family Medicine; Referring Provider Obstetrics & Gynecology; Visit Provider Obstetrics & Gynecology
PROC: 0UB98ZZ Excision of Uterus, Via Natural or Artificial Opening Endoscopic (ICD-10-PCS; CPT 58558; principal; 2024-10-13 09:40)
DX: N84.0 Polyp of corpus uteri (principal); I50.9 Heart failure, unspecified; I11.0 Hypertensive heart disease with heart failure; I42.0 Dilated cardiomyopathy; K21.9 Gastro-esophageal reflux disease without esophagitis; E78.2 Mixed hyperlipidemia; G47.30 Sleep apnea, unspecified; J45.909 Unspecified asthma, uncomplicated; F41.9 Anxiety disorder, unspecified; F32.A Depression, unspecified; Z79.899 Other long term (current) drug therapy; Z79.51 Long term (current) use of inhaled steroids
CPT/HCPCS: 58558; 00952; 88305; A4216; J2405

== ENCOUNTER → 2024-10-23 | Outpatient (CLI) | payer OTHER, SELFPAY ==
[2024-10-23 10:07] LABS: Anion Gap 7 (5-15); BUN 14 mg/dL (7-18); BUN/Creat Ratio 14.2 RATIO (10-20); Chloride 104 mmol/L (98-107); Creatinine, Serum 0.98 mg/dL (0.55-1.02); EST Glomerular Filtration Rate 64 mL/min (>60); Est Glom Filt Rate - Afr Amer 78 mL/min (>60); Glucose 80 mg/dL (74-106); Potassium 3.5 mmol/L (3.5-5.1); Sodium Level 138 mmol/L (136-145)
== END | disposition home or self-care (01) ==
PROVIDERS: PCP Family Medicine; Referring Provider Internal Medicine Cardiovascular Disease; Visit Provider Internal Medicine Cardiovascular Disease
DX: R00.2 Palpitations (principal); R53.83 Other fatigue
CPT/HCPCS: 36415; 80048; 84443; 93225; 93226